=== PATIENT | female | born 1955 | race Hispanic/Latino ===

== ENCOUNTER 2019-03-06 09:47 | Observation (INO) | payer OTHER ==
[~2019-03-06] VITALS: Ht 157.5 cm; Wt 69.4 kg
[2019-03-06] VITALS (7 sets, daily range): BP systolic 106–155; BP diastolic 56–71
--- OUTSIDE RECORDS SUMMARY | 2019-03-06 09:52 | XMS REPORT | Continuity of Care Document ---
Author Author [employer] Address Unknown Phone Unavailable Care Team Providers Care Department Assistant Name Role Phone [employer] Information [employer] Unavailable Unavailable Problems Problem Status Onset Date Classification Date Reported Comments Source CHEST PAINS/ SOB Active 01/15/2018 [facility] ACUTE CHEST PAIN Active 01/15/2018 [facility] Discharge Diagnosis: Constipation 08/22/2016 08/25/2016 [facility] Discharge Diagnosis: Epigastric pain 08/22/2016 08/25/2016 [facility] ABD PAIN Active 08/22/2016 [facility] 726.73 Active 10/22/2012 [facility] UNK Active 10/22/2012 [facility] FALL, KNEE INJURY Active 09/08/2012 [facility] Acid reflux Active Problem 11/05/2012 [facility] Plantar fasciitis1 Active Problem 11/05/2012 1left foot [facility] Acid reflux Active Problem 01/18/2018 [facility] HTN (Confirmed) Resolved Problem 01/18/2018 [facility] Plantar fasciitis1 Active Problem 01/18/2018 left foot [facility] Medications Medication Details Route Status Patient Instructions Ordering Provider Order Date Source lisinopril 20 mg oral tablet 20 mg=1 tab, PO, Daily, 0 Refill(s) Active 01/15/2018 [facility] Acetaminophen 325 MG / Hydrocodone Bitartrate 10 MG Oral Tablet [[place]erson 10/325] 1 tab, Route: PO, Drug Form: TAB, Dosing Weight 86.364, kg, ONCE, STAT, Start date: 01/15/18 6:20:00 CDT, Stop date: 01/15/18 6:20:00 CDT Inactive 01/15/2018 [facility] Aspirin 324 mg, Route: PO, ONCE, Dosing Weight 86.364, kg, Priority: STAT, Start date: 01/15/18 5:58:00 CDT, Stop date: 01/15/18 5:58:00 CDT Inactive 01/15/2018 [facility] Saline Flush 0.9% 10 mL, Route: IVP, Drug Form: INJ, Dosing Weight 86.364, kg, PRN, PRN Line Flush, Start date: 01/15/18 5:58:00 CDT, Duration: 30 day, Stop date: 02/14/18 5:57:00 CDTNotes: (Same as: BD Posiflush) Inactive 01/15/2018 [facility] Docusate Sodium 50 MG Oral Capsule [Colace] 50 mg=1 cap, PO, BID, PRN Constipation, # 60 cap, 0 Refill(s) Active 08/23/2016 [facility] Esomeprazole 20 MG Enteric Coated Capsule [Nexium] 20 mg=1 cap, PO, Daily, # 30 cap, 1 Refill(s) Active 08/23/2016 [facility] Sodium Chloride 0.154 MEQ/ML Injectable Solution 1,000 mL, 1,000 ml/hr, Infuse Over: 1 hr, Route: IV, 1,000, Drug form: INJ, ONCE, Priority: STAT, Dosing Weight 84.091 kg, Start date: 08/22/16 18:58:00 [employer], Duration: 1 doses or times, Stop date: 08/22/16 18:58:00 [employer] Inactive 08/23/2016 [facility] Zofran 4 mg, 2 mL, Route: IVP, Drug form: INJ, ONCE, Dosing Weight 84.091, kg, Priority: STAT, Start date: 08/22/16 18:58:00 [employer], Stop date: 08/22/16 18:58:00 CSTNotes: (Same as: Zofran) MEDICATION WASTE Product Size: 4 mg Product Wasted: ___ mg Inactive 08/23/2016 [facility] Morphine 4 mg, 1 mL, Route: IVP, Drug form: SOLN, ONCE, Dosing Weight 84.091, kg, Priority: STAT, Start date: 08/22/16 18:58:00 [employer], Stop date: 08/22/16 18:58:00 CSTNotes: (Same as:MORPhine Sulfate) Inactive 08/23/2016 [facility] ondansetron 4 mg, Route: IVP, ONCE, Dosing Weight 88.636, kg, PRN Nausea & Vomiting, Start date: 11/03/12 11:03:00 IVP No Longer Active [facility] 11/03/2012 [facility] acetaminophen-hydrocodone 325 mg-5 mg oral tablet 2 tab, Route: PO, Dosing Weight 88.636, kg, Q4H, PRN Pain Score 4-6, Start date: 11/03/12 11:03:00, Duration: 30 day, Stop date: 12/03/12 11:02:00 PO No Longer Active Repinecz 11/03/2012 [facility] fentanyl 25 microgram, Route: IVP, Q5Min, Dosing Weight 88.636, kg, PRN Pain Score 4-6, Start date: 11/03/12 11:03:00, Duration: 4 doses or times, Stop date: Limited # of times IVP No Longer Active Repinecz 11/03/2012 [facility] hydromorphone 0.5 mg, Route: IVP, Q5Min, Dosing Weight 88.636, kg, PRN Pain Score 4-6, Start date: 11/03/12 11:03:00, Duration: 5 doses or times, Stop date: Limited # of times IVP No Longer Active Repinecz 11/03/2012 [facility] naloxone 0.04 mg, Route: IVP, Q2MIN, Dosing Weight 88.636, kg, PRN Narcotic Reversal, Start date: 11/03/12 11:03:00, Duration: 8 doses or times, Stop date: Limited # of times IVP No Longer Active Repinecz 11/03/2012 [facility] ketorolac 30 mg, Route: IVP, ONCE, Dosing Weight 88.636, kg, PRN Breakthrough Pain, Start date: 11/03/12 11:03:00, Duration: 1 doses or times, Stop date: Limited # of times IVP No Longer Active Repinecz 11/03/2012 [facility] meperidine 12.5 mg, Route: IVP, Q30Min, Dosing Weight 88.636, kg, PRN Other -See Comment, For shivering, Start date: 11/03/12 11:03:00, Duration: 2 doses or times, Stop date: Limited # of times IVP No Longer Active Repinecz 11/03/2012 [facility] flumazenil 0.2 mg, Route: IVP, PRN, Dosing Weight 88.636, kg, PRN Benzodiazepine Reversal, Initial dose, Start date: 11/03/12 11:03:00, Duration: 30 day, Stop date: 12/03/12 11:02:00 [facility] Lactated Ringers Injection IV 1000 mL 1,000 mL, Rate: 25 ml/hr, Infuse over: 40 hr, Route: IV, Dosing Weight 88.636 kg, Total Volume: 1,000, Start date: 11/03/12 7:36:00, Duration: 30 day, Stop date: 12/03/12 7:35:00 IV No Longer Active Repinecz 11/03/2012 [facility] cefazolin 2 gm, 100 mL, Route: IVPB, Drug form: INJ, ONCALL, Dosing Weight 89.091, kg, Start date: 10/28/12 17:00:00, Duration: 1 doses or times IVPB No Longer Active Repinecz 10/28/2012 [facility] pantoprazole 20 mg oral enteric coated tablet 40 mg, 2 tab, PO, Daily, 60 tab, Substitution Allowed, ECTAB PO Active 10/28/2012 [facility] [place] 5/325 oral tablet 1 tab, PO, Q6H, PRN, 16 tab, for pain, Substitution Allowed, Maintenance, TAB PO Active [facility] 09/09/2012 [facility] naproxen 375 mg oral enteric coated tablet 375 mg, 1 tab, PO, BID, 8 tab, Substitution Allowed, ECTAB PO Active [facility] 09/09/2012 [facility] acetaminophen-hydrocodone 325 mg-5 mg oral tablet 1 tab, Route: PO, Dosing Weight 89.091, kg, ONCE, STAT, Start date: 09/08/12 19:24:00, Stop date: 09/08/12 19:24:00 PO No Longer Active [facility] 09/09/2012 [facility] Allergies, Adverse Reactions, Alerts No Known Medication Allergies Immunizations No Data Provided for This Section Results Order Name Results Value Reference Range Date Interpretation Comments Source CARDIAC ENZYMES CK MB Index <1.6 0.0 - 2.5 01/15/2018 [facility] CARDIAC ENZYMES Total CK 62 12 - 191 01/15/2018 [facility] CARDIAC ENZYMES Troponin-I <0.02 0.00 - 0.40 01/15/2018 [facility] CARDIAC ENZYMES CK MB <1.0 0.5 - 3.6 01/15/2018 [facility] CARDIAC ENZYMES CK MB Index <1.4 0.0 - 2.5 01/15/2018 [facility] CARDIAC ENZYMES Troponin-I <0.02 0.00 - 0.40 01/15/2018 [facility] CARDIAC ENZYMES Total CK 71 12 - 191 01/15/2018 [facility] CARDIAC ENZYMES CK MB <1.0 0.5 - 3.6 01/15/2018 [facility] URINE AND STOOL UA Leuk Est Negative (01/15/18 6:33 AM) Negative 01/15/2018 [facility] URINE AND STOOL UA Sq Epi Occasional /LPF Few /LPF 01/15/2018 [facility] URINE AND STOOL UA Urobilinogen 0.2 0.1 - 1.0 01/15/2018 [facility] URINE AND STOOL UA Bili Negative *NA* (01/15/18 6:33 AM) Negative 01/15/2018 [facility] URINE AND STOOL UA Nitrite Negative (01/15/18 6:33 AM) Negative 01/15/2018 [facility] URINE AND STOOL UA Blood Negative (01/15/18 6:33 AM) Negative 01/15/2018 [facility] URINE AND STOOL UA WBC 0-2 /HPF 0 - 5 01/15/2018 [facility] URINE AND STOOL UA Mucus None Seen (01/15/18 6:33 AM) None Seen 01/15/2018 [facility] URINE AND STOOL UA Bacteria Occasional /HPF None Seen /HPF 01/15/2018 [facility] URINE AND STOOL UA RBC None Seen (01/15/18 6:33 AM) 0 - 2 01/15/2018 [facility] URINE AND STOOL UA Color Other *ABN* (01/15/18 6:33 AM) Yellow 01/15/2018 [facility] URINE AND STOOL UA Spec Grav <=1.005 *NA* (01/15/18 6:33 AM) <=1.030 01/15/2018 [facility] URINE AND STOOL UA Turbidity Slight Cloudy (01/15/18 6:33 AM) Clear 01/15/2018 [facility] URINE AND STOOL UA Glucose Negative (01/15/18 6:33 AM) Negative 01/15/2018 [facility] URINE AND STOOL UA pH 6.5 5.0 - 8.0 01/15/2018 [facility] URINE AND STOOL UA Ketones Negative *NA* (01/15/18 6:33 AM) Negative 01/15/2018 [facility] URINE AND STOOL UA Protein Negative (01/15/18 6:33 AM) Negative 01/15/2018 [facility] CARDIAC ENZYMES CK MB Index <1.4 0.0 - 2.5 01/15/2018 [facility] CARDIAC ENZYMES Total CK 74 12 - 191 01/15/2018 [facility] CARDIAC ENZYMES Troponin-I <0.02 0.00 - 0.40 01/15/2018 [facility] CARDIAC ENZYMES CK MB <1.0 0.5 - 3.6 01/15/2018 [facility] CARDIAC ENZYMES BNP 22 <=100 pg/mL 01/15/2018 [facility] CHEM PANEL Lipase Lvl 96 73 - 393 01/15/2018 [facility] CHEM PANEL eGFR 93 01/15/2018 Result Comment: The eGFR is calculated using the CKD-EPI formula. In most young, healthy individuals the eGFR will be >90 mL/min/1.73m2. The eGFR declines with age. An eGFR of 60-89 may be normal in some populations, particularly the elderly, for whom the CKD-EPI formula has not been extensively validated. Use of the eGFR is not recommended in the following populations:

Individuals with unstable creatinine concentrations, including patients and those with serious co-morbid conditions.

Patients with extremes in muscle mass or diet.

The data above are obtained from the National Kidney Disease Education Program (NKDEP) which additionally recommends that when the eGFR is used in patients with extremes of body mass index for purposes of drug dosing, the eGFR should be multiplied by the estimated BMI. [facility] CHEM PANEL A/G Ratio 1.0 0.7 - 1.6 01/15/2018 [facility] CHEM PANEL AGAP 11.5 10.0 - 20.0 01/15/2018 [facility] CHEM PANEL Alk Phos 98 39 - 136 01/15/2018 [facility] CHEM PANEL B/C Ratio 24 6 - 25 01/15/2018 [facility] CHEM PANEL Globulin 3.5 2.7 - 4.2 01/15/2018 [facility] CHEM PANEL Bili Total 0.4 0.2 - 1.3 01/15/2018 [facility] CHEM PANEL Albumin Lvl 3.6 3.5 - 5.0 01/15/2018 [facility] CHEM PANEL Calcium Lvl 9.1 8.5 - 10.5 01/15/2018 [facility] CHEM PANEL Total Protein 7.1 6.4 - 8.4 01/15/2018 [facility] CHEM PANEL ALT 23 0 - 65 01/15/2018 [facility] CHEM PANEL AST 14 0 - 37 01/15/2018 [facility] CHEM PANEL CO2 30 24 - 32 01/15/2018 [facility] CHEM PANEL Potassium Lvl 4.5 3.5 - 5.1 01/15/2018 [facility] CHEM PANEL Creatinine Lvl 0.68 0.50 - 1.40 01/15/2018 [facility] CHEM PANEL Sodium Lvl 144 135 - 145 01/15/2018 [facility] CHEM PANEL Chloride Lvl 107 95 - 109 01/15/2018 [facility] CHEM PANEL BUN 16 7 - 22 01/15/2018 [facility] CHEM PANEL Glucose Lvl 103 70 - 99 01/15/2018 [facility] HEMATOLOGY Monocytes 7.4 2.0 - 12.0 01/15/2018 [facility] HEMATOLOGY Lymphocytes 29.1 20.0 - 40.0 01/15/2018 [facility] HEMATOLOGY Basophils 0.6 0.0 - 1.0 01/15/2018 [facility] HEMATOLOGY Segs-Bands # 4.5 1.5 - 8.1 01/15/2018 [facility] HEMATOLOGY Eosinophils # 0.2 0.0 - 0.5 01/15/2018 [facility] HEMATOLOGY Lymphocytes # 2.1 1.0 - 5.5 01/15/2018 [facility] HEMATOLOGY Monocytes # 0.5 0.0 - 0.8 01/15/2018 [facility] HEMATOLOGY Eosinophils 2.4 0.0 - 4.0 01/15/2018 [facility] HEMATOLOGY Segs 60.5 45.0 - 75.0 01/15/2018 [facility] HEMATOLOGY RDW 13.9 11.5 - 14.5 01/15/2018 [facility] HEMATOLOGY Platelet 245 133 - 450 01/15/2018 [facility] HEMATOLOGY MCV 96.3 80.0 - 98.0 01/15/2018 [facility] HEMATOLOGY MPV 8.1 7.4 - 10.4 01/15/2018 [facility] HEMATOLOGY MCHC 34.3 32.0 - 36.0 01/15/2018 [facility] HEMATOLOGY MCH 33.0 27.0 - 31.0 01/15/2018 [facility] HEMATOLOGY WBC 7.4 3.7 - 10.4 01/15/2018 [facility] HEMATOLOGY Hgb 13.2 12.0 - 16.0 01/15/2018 [facility] HEMATOLOGY RBC 4.00 4.20 - 5.40 01/15/2018 [facility] HEMATOLOGY Hct 38.5 36.0 - 48.0 01/15/2018 [facility] HEMATOLOGY PT 13.6 12.0 - 14.7 01/15/2018 [facility] HEMATOLOGY INR 1.04 0.85 - 1.17 01/15/2018 [facility] HEMATOLOGY PTT 26.2 22.9 - 35.8 01/15/2018 [facility] URINE AND STOOL UA pH 6.0 5.0 - 8.0 08/23/2016 [facility] URINE AND STOOL UA Turbidity Slight *ABN* (08/22/16 7:33 PM) Clear 08/23/2016 [facility] URINE AND STOOL UA Spec Grav 1.017 <=1.030 08/23/2016 [facility] URINE AND STOOL UA Protein 100 mg/dL Negative mg/dL 08/23/2016 [facility] URINE AND STOOL UA Sq Epi Many /LPF Few /LPF 08/23/2016 [facility] URINE AND STOOL UA WBC <1 0 - 5 08/23/2016 [facility] URINE AND STOOL UA Bacteria Occasional /HPF None Seen /HPF 08/23/2016 [facility] URINE AND STOOL UA Mucus Few /LPF None Seen /LPF 08/23/2016 [facility] URINE AND STOOL UA Bili Negative *NA* (08/22/16 7:33 PM) Negative 08/23/2016 [facility] URINE AND STOOL UA Blood Negative (08/22/16 7:33 PM) Negative 08/23/2016 [facility] URINE AND STOOL UA Nitrite Negative (08/22/16 7:33 PM) Negative 08/23/2016 [facility] URINE AND STOOL UA Leuk Est Negative (08/22/16 7:33 PM) Negative 08/23/2016 [facility] URINE AND STOOL UA Glucose Negative mg/dL Negative mg/dL 08/23/2016 [facility] URINE AND STOOL UA Ketones Negative mg/dL Negative mg/dL 08/23/2016 [facility] URINE AND STOOL UA Color Ltyellow 08/23/2016 [facility] URINE AND STOOL UA Urobilinogen <=1.0 mg/dL 0.1 - 1.0 08/23/2016 [facility] CARDIAC ENZYMES Troponin-I <0.02 0.00 - 0.40 08/23/2016 [facility] CHEM PANEL Lipase Lvl 76 73 - 393 08/23/2016 [facility] CHEM PANEL Globulin 4.5 2.7 - 4.2 08/23/2016 [facility] CHEM PANEL A/G Ratio 0.9 0.7 - 1.6 08/23/2016 [facility] CHEM PANEL B/C Ratio 27 6 - 25 08/23/2016 [facility] CHEM PANEL AGAP 13.8 10.0 - 20.0 08/23/2016 [facility] CHEM PANEL eGFR 84 08/23/2016 Result Comment: The eGFR is calculated using the CKD-EPI formula. In most young, healthy individuals the eGFR will be >90 mL/min/1.73m2. The eGFR declines with age. An eGFR of 60-89 may be normal in some populations, particularly the elderly, for whom the CKD-EPI formula has not been extensively validated. Use of the eGFR is not recommended in the following populations:

Individuals with unstable creatinine concentrations, including patients and those with serious co-morbid conditions.

Patients with extremes in muscle mass or diet.

The data above are obtained from the National Kidney Disease Education Program (NKDEP) which additionally recommends that when the eGFR is used in patients with extremes of body mass index for purposes of drug dosing, the eGFR should be multiplied by the estimated BMI. [facility] CHEM PANEL Glucose Lvl 139 70 - 99 08/23/2016 [facility] CHEM PANEL BUN 21 7 - 22 08/23/2016 [facility] CHEM PANEL Bili Total 0.3 0.2 - 1.3 08/23/2016 [facility] CHEM PANEL Alk Phos 113 39 - 136 08/23/2016 [facility] CHEM PANEL ALT 34 0 - 65 08/23/2016 [facility] CHEM PANEL AST 20 0 - 37 08/23/2016 [facility] CHEM PANEL Total Protein 8.6 6.4 - 8.4 08/23/2016 [facility] CHEM PANEL Albumin Lvl 4.1 3.5 - 5.0 08/23/2016 [facility] CHEM PANEL CO2 27 24 - 32 08/23/2016 [facility] CHEM PANEL Calcium Lvl 9.1 8.5 - 10.5 08/23/2016 [facility] CHEM PANEL Potassium Lvl 3.8 3.5 - 5.1 08/23/2016 [facility] CHEM PANEL Chloride Lvl 103 95 - 109 08/23/2016 [facility] CHEM PANEL Creatinine Lvl 0.77 0.50 - 1.40 08/23/2016 [facility] CHEM PANEL Sodium Lvl 140 135 - 145 08/23/2016 [facility] HEMATOLOGY Plt Morph Normal (08/22/16 7:01 PM) 08/23/2016 [facility] HEMATOLOGY Metamyelocytes 2.0 0.0 - 1.0 08/23/2016 [facility] HEMATOLOGY Atypical Lymphs 0.0 <=0.0 % 08/23/2016 [facility] HEMATOLOGY RBC Morph Normal (08/22/16 7:01 PM) 08/23/2016 [facility] HEMATOLOGY Segs-Bands # 8.1 1.5 - 8.1 08/23/2016 [facility] HEMATOLOGY Basophils # 0.1 0.0 - 0.2 08/23/2016 [facility] HEMATOLOGY Monocytes # 0.4 0.0 - 0.8 08/23/2016 [facility] HEMATOLOGY Segs 68.0 45.0 - 75.0 08/23/2016 [facility] HEMATOLOGY Lymphocytes # 3.1 1.0 - 5.5 08/23/2016 [facility] HEMATOLOGY Lymphocytes 26.0 20.0 - 40.0 08/23/2016 [facility] HEMATOLOGY Basophils 1.0 0.0 - 1.0 08/23/2016 [facility] HEMATOLOGY Bands 0.0 0.0 - 11.0 08/23/2016 [facility] HEMATOLOGY Monocytes 3.0 2.0 - 12.0 08/23/2016 [facility] HEMATOLOGY MCV 94.4 80.0 - 98.0 08/23/2016 [facility] HEMATOLOGY RDW 14.1 11.5 - 14.5 08/23/2016 [facility] HEMATOLOGY Hct 42.3 36.0 - 48.0 08/23/2016 [facility] HEMATOLOGY Hgb 14.2 12.0 - 16.0 08/23/2016 [facility] HEMATOLOGY Platelet 274 133 - 450 08/23/2016 [facility] HEMATOLOGY MCHC 33.6 32.0 - 36.0 08/23/2016 [facility] HEMATOLOGY MPV 8.5 7.4 - 10.4 08/23/2016 [facility] HEMATOLOGY MCH 31.7 27.0 - 31.0 08/23/2016 [facility] HEMATOLOGY RBC 4.48 4.20 - 5.40 08/23/2016 [facility] HEMATOLOGY WBC 11.9 3.7 - 10.4 08/23/2016 [facility] URINALYSIS UA Sq Epi Few /LPF *NA* (10/28/2012 16:31:00) Few 10/28/2012 NA [facility] URINALYSIS UA RBC 1 0 - 2 10/28/2012 Normal [facility] URINALYSIS UA Leuk Est Negative (10/28/2012 16:31:00) Negative 10/28/2012 Normal [facility] URINALYSIS UA Nitrite Negative (10/28/2012 16:31:00) Negative 10/28/2012 Normal [facility] URINALYSIS UA Ketones Negative mg/dL *NA* (10/28/2012 16:31:00) Negative 10/28/2012 [facility] URINALYSIS UA WBC 1 0 - 5 10/28/2012 Normal [facility] URINALYSIS UA Glucose Negative mg/dL *NA* (10/28/2012 16:31:00) Negative 10/28/2012 NA [facility] URINALYSIS UA Blood Negative (10/28/2012 16:31:00) Negative 10/28/2012 Normal [facility] URINALYSIS UA Bili Negative *NA* (10/28/2012 16:31:00) Negative 10/28/2012 [facility] URINALYSIS UA Protein Negative mg/dL (10/28/2012 16:31:00) Negative 10/28/2012 Normal [facility] URINALYSIS UA Urobilinogen 0.1 - 1.0 10/28/2012 NA [facility] URINALYSIS UA Mucus Few /LPF *NA* (10/28/2012 16:31:00) None Seen 10/28/2012 [facility] URINALYSIS UA Spec Grav 1.024 <=1.030 10/28/2012 Normal [facility] URINALYSIS UA Turbidity Clear (10/28/2012 16:31:00) Clear 10/28/2012 Normal [facility] URINALYSIS UA Color Yellow *NA* (10/28/2012 16:31:00) Yellow 10/28/2012 [facility] URINALYSIS UA pH 5.0 5.0 - 8.0 10/28/2012 Normal [facility] Pathology Reports No Data Provided for This Section Diagnostic Reports Report Value Date Source Chest 1view DX Chest, single view dated 01/15/2018. HISTORY: Chest pain. Shortness of breath. Comparison is made to a prior study dated 08/22/2016. The heart is normal in size. The cardiomediastinal shadow is stable. The lungs appear clear. The pulmonary vasculature is normal in caliber. No acute pleural space abnormalities are identified. IMPRESSION: 1. No radiographic evidence of acute cardiopulmonary disease. SL: 131 01/15/2018 [facility] Abdomen/Pelvis w IV contrast CT Patient Name: KRISTI NUNO : 1955; Age: 60 years Female MR: [id number] Study: Abdomen/Pelvis w IV contrast CT 08/22/2016 6:59 PM [employer] Clinical Indication: Abdominal pain, acute, Stated difuse abd pain x 1 hr. Denies nausea and vomiting.. 100ml omnipaque, ct [id number] COMPARISON: Ultrasound 08/22/2016. TECHNIQUE: Helical imaging was performed diaphragm through the symphysis with IV multiplanar reformations obtained after the administration of IV contrast. FINDINGS: LOWER CHEST: Mild cardiomegaly. Bibasilar atelectasis. ABDOMEN: No free air. Small hiatal hernia. LIVER: Normal. BILIARY TREE: Normal. GALLBLADDER: Normal. PANCREAS: Normal. SPLEEN: Normal. ADRENALS: Normal. KIDNEYS: No hydronephrosis. PELVIS: No pelvic mass. The urinary bladder is normal. BOWEL: Normal appendix. Right colonic marked degree of retained feces with fecalization of the distal small bowel. PERITONEUM: No free intraperitoneal fluid. RETROPERITONEUM: Mild atheromatous aortic calcification. There is no pathologic lymphadenopathy. 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 L4- S1 severe spondylosis. Lower lumbar laminectomy. IMPRESSION: 1. Right colonic constipation with fecalization of distal small bowel. 2. Normal appendix. 3. Cardiomegaly. 4. 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 5. Small hiatal hernia. 6. Lower lumbar spondylosis. SL: [id number] 08/22/2016 [facility] Abdomen RUQ US Patient Name: KRISTI NUNO : 1955; Age: 60 years Female MR: [id number] Study: Abdomen RUQ US 08/22/2016 6:57 PM [employer] Clinical Indication: Abdominal pain, acute. epigastric pain for one hour. COMPARISON: None TECHNIQUE: Grayscale and limited color sonographic evaluation of the right upper quadrant of the abdomen and gallbladder region was performed with standard technique. FINDINGS: LIVER: The visualized liver shows normal contour, size, and morphology. There is increased parenchymal echotexture. BILE DUCTS: The intrahepatic and extrahepatic bile ducts are not dilated. The common bile duct measures 3.8 mm. The distal common bile duct is not well seen. GALLBLADDER: No definite gallstones. Slight gallbladder wall thickening up to 3.5 mm. PANCREAS: Slight pancreatic body thickening with overall limited evaluation secondary to bowel gas. KIDNEY: The right kidney measures 11.2 x 6.0 x 5.6 cm. The renal cortical thickness measures 1.0 cm. There is normal renal contour and morphology, with normal parenchymal echotexture. There is no hydronephrosis. ASCITES: There is no right upper quadrant abdominal ascites. IMPRESSION: 1. No definite gallstones. Slight gallbladder wall thickening. This could be secondary to underdistention. If there is concern for acalculous cholecystitis, a HIDA scan is then recommended. 2. Pancreatic wall thickening, correlation for pancreatitis is recommended. 3. Hepatocellular disease most likely due to fatty infiltration. SL: [id number] 08/22/2016 [facility] Chest 1view DX EXAM: XR CHEST 1 VIEW DATE: 08/22/2016 6:56 PM [employer] INDICATION: Shortness of Breath. COMPARISON: None Available. TECHNIQUE: A single AP view of the chest was obtained. FINDINGS: No focal consolidation or pneumothorax is identified. The cardiomediastinal silhouette is within normal limits. The costophrenic recesses are sharp and without effusion. No acute osseous abnormality is identified. IMPRESSION: No acute cardiopulmonary abnormality. SL: [id number] 08/22/2016 [facility] Consultation Notes No Data Provided for This Section Discharge Summaries No Data Provided for This Section History and Physicals No Data Provided for This Section Vital Signs Vital Sign Value Date Comments Source Respitory Rate 17 01/15/2018 [facility] Heart Rate 63 01/15/2018 [facility] Systolic (mm Hg) 114 01/15/2018 [facility] Diastolic (mm Hg) 60 01/15/2018 [facility] Temperature Oral (F) 98.0 F 01/15/2018 [facility] BMI Calculated 35.37 01/15/2018 [facility] Height 157.48 cm 01/15/2018 [facility] Weight 87.727 01/15/2018 [facility] Systolic (mm Hg) 141 01/15/2018 [facility] Diastolic (mm Hg) 70 01/15/2018 [facility] Heart Rate 63 01/15/2018 [facility] Temperature Oral (F) 97.7 F 01/15/2018 [facility] Respitory Rate 18 01/15/2018 [facility] Systolic (mm Hg) 132 01/15/2018 [facility] Diastolic (mm Hg) 83 01/15/2018 [facility] Respitory Rate 14 01/15/2018 [facility] Heart Rate 66 01/15/2018 [facility] Weight 86.364 01/15/2018 [facility] BMI Calculated 34.82 01/15/2018 [facility] Temperature Oral (F) 98.4 F 01/15/2018 [facility] Height 157.48 cm 01/15/2018 [facility] Respitory Rate 20 08/23/2016 [facility] Systolic (mm Hg) 161 08/23/2016 [facility] Diastolic (mm Hg) 75 08/23/2016 [facility] Temperature Oral (F) 98.2 F 08/23/2016 [facility] Systolic (mm Hg) 180 08/23/2016 [facility] Diastolic (mm Hg) 83 08/23/2016 [facility] Respitory Rate 19 08/23/2016 [facility] Systolic (mm Hg) 201 08/23/2016 [facility] Diastolic (mm Hg) 97 08/23/2016 [facility] Respitory Rate 17 08/23/2016 [facility] Heart Rate 93 08/23/2016 [facility] Heart Rate 93 08/23/2016 [facility] Temperature Oral (F) 97.7 F 08/23/2016 [facility] Height 157.48 cm 08/23/2016 [facility] Weight 84.091 08/23/2016 [facility] BMI Calculated 33.91 08/23/2016 [facility] Diastolic (mm Hg) 71 11/03/2012 [facility] Systolic (mm Hg) 132 11/03/2012 [facility] Diastolic (mm Hg) 64 11/03/2012 [facility] Systolic (mm Hg) 131 11/03/2012 [facility] Diastolic (mm Hg) 68 11/03/2012 [facility] Systolic (mm Hg) 132 11/03/2012 [facility] Respitory Rate 10 11/03/2012 [facility] Respitory Rate 12 11/03/2012 [facility] Respitory Rate 14 11/03/2012 [facility] Heart Rate 77 11/03/2012 [facility] Heart Rate 74 10/28/2012 [facility] Temperature Oral (F) 97.8 F 10/28/2012 [facility] Weight 88.636 10/28/2012 [facility] Height 157.48 cm 10/28/2012 [facility] Height 157.48 cm 09/08/2012 [facility] Weight 89.091 09/08/2012 [facility] Encounters Location Location Details Encounter Type Encounter Number Reason For Visit Attending Provider ADM Date DC Date Status Source [facility] Emergency [id number] AKILAH PATRICIO 09/08/2012 09/08/2012 Discharged [facility] DS [id number] NIRALI GORDON 11/03/2012 11/03/2012 Discharged [facility] Emergency [id number] Harleen Al 08/23/2016 08/23/2016 [facility] Observation [id number] Celso Mantilla 01/15/2018 01/15/2018 [facility] Procedures Procedure Code Date Perfomer Comments Source Arthroscopic knee operation [id number] [facility] Operation [id number] [facility] Arthroscopic knee operation [id number] [facility] Operation [id number] [facility] Assessment and Plan Assessment and Plan Date Source Extracted from:Title: Clinical Document Author: Celso Mantilla MD Date: 01/15/18 Cardiology Note Celso Mantilla MD, PA THIS IS A COMBINED H&P AND DISCHARGE SUMMARY SUBJECTIVE: CC: chest pain History of Present Illness The patient presents with chest pain. The onset was 23:30 last night . The course/duration of symptoms is constant. Location: central. Radiating pain: left arm. The character of symptoms is sharp. The degree at onset was minimal. The degree at maximum was moderate. The degree at present is minimal. Associated symptoms: denies shortness of breath, denies nausea, denies vomiting, denies diaphoresis and denies anxiety. Review of Systems Constitutional symptoms: Negative except as documented in HPI, no fever, no chills, no weakness, no fatigue, no decreased activity. Skin symptoms: Negative except as documented in HPI, no jaundice, no rash, no abrasions, no nguyen, no petechiae, no lesion. Eye symptoms: Negative except as documented in HPI, no pain, no discharge, no diplopia, no blurred vision, no blindness. ENMT symptoms: Negative except as documented in HPI, no ear pain, no sore throat, no nasal congestion, no sinus pain. Respiratory symptoms: Negative except as documented in HPI, no shortness of breath, no orthopnea, no cough, no hemoptysis, no sputum production. Cardiovascular symptoms: Chest pain, no palpitations, no tachycardia, no syncope, no peripheral edema. Gastrointestinal symptoms: Negative except as documented in HPI, no nausea, no vomiting, no diarrhea, no constipation, no rectal bleeding, no rectal pain. Genitourinary symptoms: No dysuria, no hematuria. Musculoskeletal symptoms: Negative except as documented in HPI, no back pain, no Muscle pain, no Joint pain, no Claudication. Neurologic symptoms: Negative except as documented in HPI, no headache, no dizziness, no numbness. Psychiatric symptoms: Negative except as documented in HPI, no anxiety, no sleeping problems. Endocrine symptoms: Negative except as documented in HPI, no polyuria, no polydipsia. Hematologic/Lymphatic symptoms: Negative except as documented in HPI, bleeding tendency negative, bruising tendency negative, no petechiae, no swollen nodes. Allergy/immunologic symptoms: Negative except as documented in HPI, no seasonal allergies, no recurrent infections. Additional review of systems information: All other systems reviewed and otherwise negative. Health Status Allergies: No known allergies. Medications: (Selected) Prescriptions Prescribed Colace 50 mg oral capsule: 50 mg, 1 cap, PO, BID, PRN: Constipation, 60 cap, 0 Refill(s) NexIUM 20 mg oral delayed release capsule: 20 mg, 1 cap, PO, Daily, 30 cap, 1 Refill(s) Documented Medications Documented pantoprazole 20 mg oral enteric coated tablet: 40 mg, 2 tab, PO, Daily, 60 tab. Past Medical/ Family/ Social History Medical history: HTN, reflux. Surgical history: arthroscopic knee operation . Family history: Denies family hx of HTN. Social history: Pt denies tobacco use, alcohol use, or drugs. . Vitals and Temp: Vitals Tmp(F) Pulse BP RR SpO2 FIO2 01/15 15:44 98.0 63 114/60 17 94 --- 01/15 11:15 97.7 63 141/70 18 99 --- 01/15 10:27 ---- 64 132/83 14 98 --- 01/15 07:00 ---- 61 141/74 15 99 --- 01/15 06:26 ---- --- 155/83 -- --- --- 24 Hr Tmax: 98.4F (36.89c) at 01/15 05:03 Vital Signs are the last 5 in the past 48 hours. Labs (Last four charted values) WBC 7.4 (JANUARY 15) Hgb 13.2 (JANUARY 15) Hct 38.5 (JANUARY 15) Plt 245 (JANUARY 15) Na 144 (JANUARY 15) K 4.5 (JANUARY 15) CO2 30 (JANUARY 15) Cl 107 (JANUARY 15) Cr 0.68 (JANUARY 15) BUN 16 (JANUARY 15) Glucose Random H 103 (JANUARY 15) Ca 9.1 (JANUARY 15) PT 13.6 (JANUARY 15) INR 1.04 (JANUARY 15) PTT 26.2 (JANUARY 15) Troponin <0.02 (JANUARY 15) <0.02 (JANUARY 15) <0.02 (JANUARY 15) CK MB <1.0 (JANUARY 15) <1.0 (JANUARY 15) <1.0 (JANUARY 15) Total CK 62 (JANUARY 15) 71 (JANUARY 15) 74 (JANUARY 15) EXAM: Good BP control; NSR; afebrile Head: normocephalic and atraumatic Neck: no carotid bruit; no JVD CV: Regular; -S3; no significant murmurs Lungs: Clear; no wheezing; good air entry Abd: soft and no organomegaly; + bowel sounds Ext: no CCE; good pulses distally Neuro: nonfocal; oriented *3 Psych: appropriate ASSESSMENT: Atypical chest pain- resolved Negative cardiac enzymes Benign ECG PLAN: DC home No new meds Cardiac diet Activity as tolerated F/U in 1-2 weeks 01/15/2018 [facility] Plan of Care No Data Provided for This Section Social History Social History Date Source Social History TypeResponse Smoking Status Never smoker; Exposure to Tobacco Smoke None; Cigarette Smoking Last 365 Days No; Reg Smoking Cessation Counseling No entered on: 01/15/18 01/15/2018 [facility] Family History No Data Provided for This Section Advance Directives No Data Provided for This Section Functional Status No Data Provided for This Section
--- OUTSIDE RECORDS SUMMARY | 2019-03-06 09:53 | XMS REPORT | Summary of Care ---
Author Author [facility] Organization [facility] Address Unknown Phone Unavailable Encounter HQ Walter(LAUREN) [id number] Date(s): 01/15/18 - 01/15/18 [facility] [address] [place] [address]- [phone] Discharge Disposition: Home or Self Care Attending Physician: Celso Mantilla MD Admitting Physician: Celso Mantilla MD Vital Signs 1 2 3 Most recent to oldest [Reference Range]: 157.48 cm (01/15/18 11:49 AM) 157.48 cm (01/15/18 5:03 AM) Height 98.0 DegF (01/15/18 3:44 PM) 97.7 DegF (01/15/18 11:15 AM) 98.4 DegF (01/15/18 5:03 AM) Temperature Oral [96.4-99.1 DegF] 114/60 mmHg (01/15/18 3:44 PM) 141/70 mmHg *HI* (01/15/18 11:15 AM) 132/83 mmHg (01/15/18 10:27 AM) Blood Pressure [90-140/60-90 mmHg] 17 BRMIN (01/15/18 3:44 PM) 18 BRMIN (01/15/18 11:15 AM) 14 BRMIN (01/15/18 10:27 AM) Respiratory Rate [14-20 BRMIN] 63 bpm (01/15/18 3:44 PM) 63 bpm (01/15/18 11:15 AM) 66 bpm (01/15/18 5:03 AM) Peripheral Pulse Rate [60-100 bpm] 87.727 kg (01/15/18 11:49 AM) 86.364 kg (01/15/18 5:03 AM) Weight 35.37 m2 (01/15/18 11:49 AM) 34.82 m2 (01/15/18 5:03 AM) Body Mass Index Problem List Condition Effective Dates Status Health Status Informant Acid Active reflux(Confirmed) HTN Resolved (hypertension)(Confi rmed) Plantar Active fasciitis(Confirmed) 1 1left foot Allergies, Adverse Reactions, Alerts Substance Reaction Severity Status NKDA NKDA Active Medications aspirin 324 mg, Route: PO, ONCE, Dosing Weight 86.364, kg, Priority: STAT, Start date: 0 01/15/18 5:58:00 CDT, Stop date: 01/15/18 5:58:00 CDT Start Date: 01/15/18 Stop Date: 01/15/18 Status: Completed lisinopril 20 mg oral tablet 20 mg=1 tab, PO, Daily, 0 Refill(s) Start Date: 01/15/18 Status: Ordered [place] 10/325 oral tablet 1 tab, Route: PO, Drug Form: TAB, Dosing Weight 86.364, kg, ONCE, STAT, Start da te: 01/15/18 6:20:00 CDT, Stop date: 01/15/18 6:20:00 CDT Start Date: 01/15/18 Stop Date: 01/15/18 Status: Completed Saline Flush 0.9% 10 mL, Route: IVP, Drug Form: INJ, Dosing Weight 86.364, kg, PRN, PRN Line Flush , Start date: 01/15/18 5:58:00 CDT, Duration: 30 day, Stop date: 02/14/18 5:57:0 0 CDT Notes: (Same as: BD Posiflush) Start Date: 01/15/18 Stop Date: 01/15/18 Status: Discontinued Results ELECTROLYTES 1 2 3 Most recent to oldest [Reference Range]: 144 mEq/L (01/15/18 6:06 AM) Sodium Lvl [135-145 mEq/L] 4.5 mEq/L (01/15/18 6:06 AM) Potassium Lvl [3.5-5.1 mEq/L] 107 mEq/L (01/15/18 6:06 AM) Chloride Lvl [95-109 mEq/L] 30 mEq/L (01/15/18 6:06 AM) CO2 [24-32 mEq/L] 11.5 mEq/L (01/15/18 6:06 AM) AGAP [10.0-20.0 mEq/L] CHEM PANEL 1 2 3 Most recent to oldest [Reference Range]: 0.68 mg/dL (01/15/18 6:06 AM) Creatinine Lvl [0.50-1.40 mg/dL] 93 mL/min/1.73m2 1 *NA* (01/15/18 6:06 AM) eGFR 16 mg/dL (01/15/18 6:06 AM) BUN [7-22 mg/dL] 24 (01/15/18 6:06 AM) B/C Ratio [6-25] 103 mg/dL *HI* (01/15/18 6:06 AM) Glucose Lvl [70-99 mg/dL] 7.1 g/dL (01/15/18 6:06 AM) Total Protein [6.4-8.4 g/dL] 3.6 g/dL (01/15/18 6:06 AM) Albumin Lvl [3.5-5.0 g/dL] 3.5 g/dL (01/15/18 6:06 AM) Globulin [2.7-4.2 g/dL] 1.0 (01/15/18 6:06 AM) A/G Ratio [0.7-1.6] 9.1 mg/dL (01/15/18 6:06 AM) Calcium Lvl [8.5-10.5 mg/dL] 23 unit/L (01/15/18 6:06 AM) ALT [0-65 unit/L] 14 unit/L (01/15/18 6:06 AM) AST [0-37 unit/L] 98 unit/L (01/15/18 6:06 AM) Alk Phos [39-136 unit/L] 0.4 mg/dL (01/15/18 6:06 AM) Bili Total [0.2-1.3 mg/dL] 96 unit/L (01/15/18 6:06 AM) Lipase Lvl [73-393 unit/L] 1Result Comment: The eGFR is calculated using the [...] from the National Kid[employer] Education Program ( NKDEP) which additionally recommends that when the eGFR is used in patients with extremes of body mass index for purposes of drug dosing, the eGFR should be mul tiplied by the estimated BMI. CARDIAC ENZYMES 1 2 3 Most recent to oldest [Reference Range]: 62 unit/L (01/15/18 4:20 PM) 71 unit/L (01/15/18 12:07 PM) 74 unit/L (01/15/18 6:06 AM) Total CK [12-191 unit/L] <1.0 ng/mL (01/15/18 4:20 PM) <1.0 ng/mL (01/15/18 12:07 PM) <1.0 ng/mL (01/15/18 6:06 AM) CK MB [0.5-3.6 ng/mL] <1.6 (01/15/18 4:20 PM) <1.4 (01/15/18 12:07 PM) <1.4 (01/15/18 6:06 AM) CK MB Index [0.0-2.5] <0.02 ng/mL (01/15/18 4:20 PM) <0.02 ng/mL (01/15/18 12:07 PM) <0.02 ng/mL (01/15/18 6:06 AM) Troponin-I [0.00-0.40 ng/mL] 22 pg/mL (01/15/18 6:06 AM) BNP [<=100 pg/mL] URINE AND STOOL 1 2 3 Most recent to oldest [Reference Range]: Slight Cloudy (01/15/18 6:33 AM) UA Turbidity [Clear] Other *ABN* (01/15/18 6:33 AM) UA Color [Yellow] 6.5 (01/15/18 6:33 AM) UA pH [5.0-8.0] <=1.005 *NA* (01/15/18 6:33 AM) UA Spec Grav [<=1.030] Negative (01/15/18 6:33 AM) UA Glucose [Negative] Negative (01/15/18 6:33 AM) UA Blood [Negative] Negative *NA* (01/15/18 6:33 AM) UA Ketones [Negative] Negative (01/15/18 6:33 AM) UA Protein [Negative] 0.2 EU/dL (01/15/18 6:33 AM) UA Urobilinogen [0.1-1.0 EU/dL] Negative *NA* (01/15/18 6:33 AM) UA Bili [Negative] Negative (01/15/18 6:33 AM) UA Leuk Est [Negative] Negative (01/15/18:33 AM) UA Nitrite [Negative] 0-2 /HPF (01/15/18 6:33 AM) UA WBC [0-5 /HPF] None Seen (01/15/18 6:33 AM) UA RBC [0-2] Occasional /HPF (01/15/18 6:33 AM) UA Bacteria [None Seen /HPF] Occasional /LPF (01/15/18 6:33 AM) UA Sq Epi [Few /LPF] None Seen (01/15/18 6:33 AM) UA Mucus [None Seen] HEMATOLOGY 1 2 3 Most recent to oldest [Reference Range]: 7.4 K/CMM (01/15/18 6:06 AM) WBC [3.7-10.4 K/CMM] 4.00 M/CMM *LOW* (01/15/18 6:06 AM) RBC [4.20-5.40 M/CMM] 13.2 g/dL (01/15/18 6:06 AM) Hgb [12.0-16.0 g/dL] 38.5 % (01/15/18 6:06 AM) Hct [36.0-48.0 %] 96.3 fL (01/15/18 6:06 AM) MCV [80.0-98.0 fL] 33.0 pg *HI* (01/15/18 6:06 AM) MCH [27.0-31.0 pg] 34.3 g/dL (01/15/18 6:06 AM) MCHC [32.0-36.0 g/dL] 13.9 % (01/15/18 6:06 AM) RDW [11.5-14.5 %] 8.1 fL (01/15/18 6:06 AM) MPV [7.4-10.4 fL] 245 K/CMM (01/15/18 6:06 AM) Platelet [133-450 K/CMM] 60.5 % (01/15/18 6:06 AM) Segs [45.0-75.0 %] 29.1 % (01/15/18 6:06 AM) Lymphocytes [20.0-40.0 %] 7.4 % (01/15/18 6:06 AM) Monocytes [2.0-12.0 %] 2.4 % (01/15/18 6:06 AM) Eosinophils [0.0-4.0 %] 0.6 % (01/15/18 6:06 AM) Basophils [0.0-1.0 %] 4.5 K/CMM (01/15/18 6:06 AM) Segs-Bands # [1.5-8.1 K/CMM] 2.1 K/CMM (01/15/18 6:06 AM) Lymphocytes # [1.0-5.5 K/CMM] 0.5 K/CMM (01/15/18 6:06 AM) Monocytes # [0.0-0.8 K/CMM] 0.2 K/CMM (01/15/18 6:06 AM) Eosinophils # [0.0-0.5 K/CMM] 13.6 seconds (01/15/18 6:06 AM) PT [12.0-14.7 seconds] 1.04 (01/15/18 6:06 AM) INR [0.85-1.17] 26.2 seconds (01/15/18 6:06 AM) PTT [22.9-35.8 seconds] Immunizations No data available for this section Procedures Procedure Date Related Diagnosis Body Site Status Arthroscopic knee operation Completed Operation Completed Social History Social History Type Response Smoking Status Never smoker; Exposure to Tobacco Smoke None; Cigarette Smoking Last 365 Days No; Reg Smoking Cessation Counseling No entered on: 01/15/18 Assessment and Plan Extracted from: Title: Clinical Document Author: Celso Mantilla MD Date: [...] use, or drugs. . Vitals and Temp: VitalsTmp(F)[id number] 01/15 15:[id number]--- 01/15 11:1597.996633/068558--- 01/15 10:27----[id number]--- 01/15 07:00----[id number]--- 01/15 06:26-------155/83-------- 24 Hr Tmax: 98.4F (36.89c) at 01/15 05:03Vital Signs are the last 5 in the past 48 hours. Labs (Last four charted values) WBC 7.4(JANUARY 15) Hgb 13.2(JANUARY 15) Hct 38.5(JANUARY 15) Plt 245(JANUARY 15) Na 144(JANUARY 15) K 4.5(JANUARY 15) CO2 30(JANUARY 15) Cl 107(JANUARY 15) Cr 0.68(JANUARY 15) BUN 16(JANUARY 15) Glucose Random H 103(JANUARY 15) Ca 9.1(JANUARY 15) PT 13.6(JANUARY 15) INR 1.04(JANUARY 15) PTT 26.2(JANUARY 15) Troponin <0.02(JANUARY 15)<0.02(JANUARY 15)<0.02(JANUARY 15) CK MB <1.0(JANUARY 15)<1.0(JANUARY 15)<1.0(JANUARY 15) Total CK 62(JANUARY 15)71(JANUARY 15)74(JANUARY 15) EXAM: Good BP control; NSR; afebrile [...]
--- OUTSIDE RECORDS SUMMARY | 2019-03-06 09:53 | XMS REPORT | CCD ---
Author Author Auto Generated Organization [facility] [place] [place] Address Unknown Phone Unavailable Care Team Providers Care Deicer Finisher Name Role Phone Joss Simental RP Allergies, Adverse Reactions, Alerts Substance Reaction Status NKDA NKDA Active Problem List Condition Effective Dates Status Acid reflux Active Plantar fasciitis1 Active 1left foot Medications Medication Instructions Start Date End Date Status ondansetron 4 mg, Route: IVP, ONCE, Dosing 11/03/2012 11/03/2012 Discontinued Weight 88.636, kg, PRN Nausea & Vomiting, Start date: 11/03/12 11:03:00 acetaminophen-hydroc 2 tab, Route: PO, Dosing Weight 11/03/2012 11/03/2012 Discontinued odone 325 mg-5 mg 88.636, kg, Q4H, PRN Pain Score oral tablet 4-6, Start date: 11/03/12 11:03:00, Duration: 30 day, Stop date: 12/03/12 11:02:00 fentanyl 25 microgram, Route: IVP, Q5Min, 11/03/2012 11/03/2012 Discontinued Dosing Weight 88.636, kg, PRN Pain Score 4-6, Start date: 11/03/12 11:03:00, Duration: 4 doses or times, Stop date: Limited # of times hydromorphone 0.5 mg, Route: IVP, Q5Min, Dosing 11/03/2012 11/03/2012 Discontinued Weight 88.636, kg, PRN Pain Score 4-6, Start date: 11/03/12 11:03:00, Duration: 5 doses or times, Stop date: Limited # of times naloxone 0.04 mg, Route: IVP, Q2MIN, Dosing 11/03/2012 11/03/2012 Discontinued Weight 88.636, kg, PRN Narcotic Reversal, Start date: 11/03/12 11:03:00, Duration: 8 doses or times, Stop date: Limited # of times ketorolac 30 mg, Route: IVP, ONCE, Dosing 11/03/2012 11/03/2012 Discontinued Weight 88.636, kg, PRN Breakthrough Pain, Start date: 11/03/12 11:03:00, Duration: 1 doses or times, Stop date: Limited # of times meperidine 12.5 mg, Route: IVP, Q30Min, Dosing 11/03/2012 11/03/2012 Discontinued Weight 88.636, kg, PRN Other -See Comment, For shivering, Start date: 11/03/12 11:03:00, Duration: 2 doses or times, Stop date: Limited # of times flumazenil 0.2 mg, Route: IVP, PRN, Dosing 11/03/2012 11/03/2012 Discontinued Weight 88.636, kg, PRN Benzodiazepine Reversal, Initial dose, Start date: 11/03/12 11:03:00, Duration: 30 day, Stop date: 12/03/12 11:02:00 pantoprazole 20 mg 40 mg, 2 tab, PO, Daily, 60 tab, 10/28/2012 Ordered oral enteric coated Substitution Allowed, ECTAB tablet Lactated Ringers 1,000 mL, Rate: 25 ml/hr, Infuse 11/03/2012 11/03/2012 Discontinued Injection IV 1000 mL over: 40 hr, Route: IV, Dosing Weight 88.636 kg, Total Volume: 1,000, Start date: 11/03/12 7:36:00, Duration: 30 day, Stop date: 12/03/12 7:35:00 cefazolin 2 gm, 100 mL, Route: IVPB, Drug 10/28/2012 11/03/2012 Completed form: INJ, ONCALL, Dosing Weight 89.091, kg, Start date: 10/28/12 17:00:00, Duration: 1 doses or times Vital Signs Most recent to oldest [Reference Range]: 1 2 3 Height 157.48 cm (10/28/2012 16:30:00) Temperature Oral [96.4-99.1 DegF] 97.8 DegF (10/28/2012 16:51:00) Systolic Blood Pressure [90-140 mmHg] 132 mmHg (11/03/2012 11:45:00) 131 mmHg (11/03/2012 11:30:00) 132 mmHg (11/03/2012 11:15:00) Diastolic Blood Pressure [60-90 mmHg] 71 mmHg (11/03/2012 11:45:00) 64 mmHg (11/03/2012 11:30:00) 68 mmHg (11/03/2012 11:15:00) Respiratory Rate [14-20 BRMIN] 10 BRMIN *LOW* (11/03/2012 10:30:00) 12 BRMIN *LOW* (11/03/2012 10:15:00) 14 BRMIN (11/03/2012 10:00:00) Peripheral Pulse Rate [60-100 bpm] 77 bpm (11/03/2012 07:29:00) 74 bpm (10/28/2012 16:51:00) Weight 88.636 kg (10/28/2012 16:30:00) Results URINALYSIS Most recent to oldest [Reference Range]: 1 UA Turbidity [Clear] Clear (10/28/2012 16:31:00) UA Color [Yellow] Yellow *NA* (10/28/2012 16:31:00) UA pH [5.0-8.0] 5.0 (10/28/2012 16:31:00) UA Spec Grav [<=1.030] 1.024 (10/28/2012 16:31:00) UA Glucose [Negative mg/dL] Negative mg/dL *NA* (10/28/2012 16:31:00) UA Blood [Negative] Negative (10/28/2012 16:31:00) UA Ketones [Negative mg/dL] Negative mg/dL *NA* (10/28/2012 16:31:00) UA Protein [Negative mg/dL] Negative mg/dL (10/28/2012 16:31:00) UA Urobilinogen [0.1-1.0 mg/dL] <=1.0 mg/dL *NA* (10/28/2012 16:31:00) UA Bili [Negative] Negative *NA* (10/28/2012 16:31:00) UA Leuk Est [Negative] Negative (10/28/2012 16:31:00) UA Nitrite [Negative] Negative (10/28/2012 16:31:00) UA WBC [0-5 /HPF] 1 /HPF (10/28/2012 16:31:00) UA RBC [0-2 /HPF] 1 /HPF (10/28/2012 16:31:00) UA Sq Epi [Few /LPF] Few /LPF *NA* (10/28/2012 16:31:00) UA Mucus [None Seen /LPF] Few /LPF *NA* (10/28/2012 16:31:00) Procedures Procedures Date Related Diagnosis Arthroscopic knee operation Operation
--- OUTSIDE RECORDS SUMMARY | 2019-03-06 09:53 | XMS REPORT | Summary of Care ---
Author Author [facility] Organization [facility] Address Unknown Phone Unavailable Encounter IGOR Watson(LAUREN) [phone] Date(s): 08/22/16 - 08/22/16 [facility] [address] [place] [address]- [phone] Discharge Diagnosis: Constipation Discharge Diagnosis: Epigastric pain Discharge Disposition: Home or Self Care Attending Physician: Harleen Al DO Vital Signs 1 2 3 Most recent to oldest [Reference Range]: 157.48 cm (08/22/16 6:37 PM) Height 98.2 DegF (08/22/16 10:58 PM) 97.7 DegF (08/22/16 6:37 PM) Temperature Oral [96.4-99.1 DegF] 161/75 mmHg *HI* (08/22/16 10:58 PM) 180/83 mmHg *HI* (08/22/16 10:03 PM) 201/97 mmHg *HI* (08/22/16 9:13 PM) Blood Pressure [90-140/60-90 mmHg] 20 BRMIN (08/22/16 10:58 PM) 19 BRMIN (08/22/16 10:03 PM) 17 BRMIN (08/22/16 9:13 PM) Respiratory Rate [14-20 BRMIN] 93 bpm (08/22/16 6:50 PM) 93 bpm (08/22/16 6:37 PM) Peripheral Pulse Rate [60-100 bpm] 84.091 kg (08/22/16 6:37 PM) Weight 33.91 m2 (08/22/16 6:37 PM) Body Mass Index Problem List Condition Effective Dates Status Health Status Informant Acid Active reflux(Confirmed) HTN Resolved (hypertension)(Confi rmed) Plantar Active fasciitis(Confirmed) 1 1left foot Allergies, Adverse Reactions, Alerts Substance Reaction Severity Status NKDA NKDA Active Medications Colace 50 mg oral capsule 50 mg=1 cap, PO, BID, PRN Constipation, # 60 cap, 0 Refill(s) Start Date: 08/22/16 Status: Ordered morphine Sulfate 4 mg, 1 mL, Route: IVP, Drug form: SOLN, ONCE, Dosing Weight 84.091, kg, Priorit y: STAT, Start date: 08/22/16 18:58:00 AUDIOMETRIC TECHNICIAN, Stop date: 08/22/16 18:58:00 AUDIOMETRIC TECHNICIAN Notes: (Same as:MORPhine Sulfate) Start Date: 08/22/16 Stop Date: 08/22/16 Status: Completed NexIUM 20 mg oral delayed release capsule 20 mg=1 cap, PO, Daily, # 30 cap, 1 Refill(s) Start Date: 08/22/16 Status: Ordered NS (Bolus) IV 1,000 mL, 1,000 ml/hr, Infuse Over: 1 hr, Route: IV, 1,000, Drug form: INJ, ONCE , Priority: STAT, Dosing Weight 84.091 kg, Start date: 08/22/16 18:58:00 AUDIOMETRIC TECHNICIAN, Du ration: 1 doses or times, Stop date: 08/22/16 18:58:00 AUDIOMETRIC TECHNICIAN Start Date: 08/22/16 Stop Date: 08/22/16 Status: Completed Zofran 4 mg, 2 mL, Route: IVP, Drug form: INJ, ONCE, Dosing Weight 84.091, kg, Priority : STAT, Start date: 08/22/16 18:58:00 AUDIOMETRIC TECHNICIAN, Stop date: 08/22/16 18:58:00 AUDIOMETRIC TECHNICIAN Notes: (Same as: Zofran) MEDICATION WASTE Product Size: 4 mgProduct Was tamy: ___ mg Start Date: 08/22/16 Stop Date: 08/22/16 Status: Completed Results ELECTROLYTES Most recent to 1 oldest [Reference Range]: Sodium Lvl [135-145 140 mEq/L mEq/L] (08/22/16 7:01 PM) Potassium Lvl 3.8 mEq/L [3.5-5.1 mEq/L] (08/22/16 7:01 PM) Chloride Lvl [95-109 103 mEq/L mEq/L] (08/22/16 7:01 PM) CO2 [24-32 mEq/L] 27 mEq/L (08/22/16 7:01 PM) AGAP [10.0-20.0 13.8 mEq/L mEq/L] (08/22/16 7:01 PM) CHEM PANEL Most recent to 1 oldest [Reference Range]: Creatinine Lvl 0.77 mg/dL [0.50-1.40 mg/dL] (08/22/16 7:01 PM) eGFR 84 mL/min/1.73m2 1 *NA* (08/22/16 7:01 PM) BUN [7-22 mg/dL] 21 mg/dL (08/22/16 7:01 PM) B/C Ratio [6-25] 27 *HI* (08/22/16 7:01 PM) Glucose Lvl [70-99 139 mg/dL mg/dL] *HI* (08/22/16 7:01 PM) Total Protein 8.6 g/dL [6.4-8.4 g/dL] *HI* (08/22/16 7:01 PM) Albumin Lvl [3.5-5.0 4.1 g/dL g/dL] (08/22/16 7:01 PM) Globulin [2.7-4.2 4.5 g/dL g/dL] *HI* (08/22/16 7:01 PM) A/G Ratio [0.7-1.6] 0.9 (08/22/16 7:01 PM) Calcium Lvl 9.1 mg/dL [8.5-10.5 mg/dL] (08/22/16 7:01 PM) ALT [0-65 unit/L] 34 unit/L (08/22/16 7:01 PM) AST [0-37 unit/L] 20 unit/L (08/22/16 7:01 PM) Alk Phos [39-136 113 unit/L unit/L] (08/22/16 7:01 PM) Bili Total [0.2-1.3 0.3 mg/dL mg/dL] (08/22/16 7:01 PM) Lipase Lvl [73-393 76 unit/L unit/L] (08/22/16 7:01 PM) 1Result Comment: The eGFR is calculated using [...] tiplied by the estimated BMI. CARDIAC ENZYMES Most recent to 1 oldest [Reference Range]: Troponin-I <0.02 ng/mL [0.00-0.40 ng/mL] (08/22/16 7:01 PM) URINE AND STOOL Most recent to 1 oldest [Reference Range]: UA Turbidity [Clear] Slight *ABN* (08/22/16 7:33 PM) UA Color Ltyellow *NA* (08/22/16 7:33 PM) UA pH [5.0-8.0] 6.0 (08/22/16 7:33 PM) UA Spec Grav 1.017 [<=1.030] (08/22/16 7:33 PM) UA Glucose [Negative Negative mg/dL mg/dL] *NA* (08/22/16 7:33 PM) UA Blood [Negative] Negative (08/22/16 7:33 PM) UA Ketones [Negative Negative mg/dL mg/dL] *NA* (08/22/16 7:33 PM) UA Protein [Negative 100 mg/dL mg/dL] *ABN* (08/22/16 7:33 PM) UA Urobilinogen <=1.0 mg/dL [0.1-1.0 mg/dL] *NA* (08/22/16 7:33 PM) UA Bili [Negative] Negative *NA* (08/22/16 7:33 PM) UA Leuk Est Negative [Negative] (08/22/16 7:33 PM) UA Nitrite Negative [Negative] (08/22/16 7:33 PM) UA WBC [0-5 /HPF] <1 /HPF (08/22/16 7:33 PM) UA Bacteria [None Occasional /HPF Seen /HPF] *NA* (08/22/16 7:33 PM) UA Sq Epi [Few /LPF] Many /LPF *ABN* (08/22/16 7:33 PM) UA Mucus [None Seen Few /LPF /LPF] *NA* (08/22/16 7:33 PM) HEMATOLOGY Most recent to 1 oldest [Reference Range]: WBC [3.7-10.4 K/CMM] 11.9 K/CMM *HI* (08/22/16 7:01 PM) RBC [4.20-5.40 4.48 M/CMM M/CMM] (08/22/16 7:01 PM) Hgb [12.0-16.0 g/dL] 14.2 g/dL (08/22/16 7:01 PM) Hct [36.0-48.0 %] 42.3 % (08/22/16 7:01 PM) MCV [80.0-98.0 fL] 94.4 fL (08/22/16 7:01 PM) MCH [27.0-31.0 pg] 31.7 pg *HI* (08/22/16 7:01 PM) MCHC [32.0-36.0 33.6 g/dL g/dL] (08/22/16 7:01 PM) RDW [11.5-14.5 %] 14.1 % (08/22/16 7:01 PM) Platelet [133-450 274 K/CMM K/CMM] (08/22/16 7:01 PM) MPV [7.4-10.4 fL] 8.5 fL (08/22/16 7:01 PM) Segs [45.0-75.0 %] 68.0 % (08/22/16 7:01 PM) Bands [0.0-11.0 %] 0.0 % (08/22/16 7:01 PM) Lymphocytes 26.0 % [20.0-40.0 %] (08/22/16 7:01 PM) Atypical Lymphs 0.0 % [<=0.0 %] (08/22/16 7:01 PM) Monocytes [2.0-12.0 3.0 % %] (08/22/16 7:01 PM) Basophils [0.0-1.0 1.0 % %] (08/22/16 7:01 PM) Metamyelocytes 2.0 % [0.0-1.0 %] *HI* (08/22/16 7:01 PM) Segs-Bands # 8.1 K/CMM [1.5-8.1 K/CMM] (08/22/16 7:01 PM) Lymphocytes # 3.1 K/CMM [1.0-5.5 K/CMM] (08/22/16 7:01 PM) Monocytes # [0.0-0.8 0.4 K/CMM K/CMM] (08/22/16 7:01 PM) Basophils # [0.0-0.2 0.1 K/CMM K/CMM] (08/22/16 7:01 PM) RBC Morph Normal (08/22/16 7:01 PM) Plt Morph Normal (08/22/16 7:01 PM) Immunizations No data available for this section Procedures Procedure Date Related Diagnosis Body Site Arthroscopic knee operation Operation Social History Social History Type Response Smoking Status Never smoker; Exposure to Tobacco Smoke None; Cigarette Smoking Last 365 Days No; Reg Smoking Cessation Counseling No Assessment and Plan No data available for this section
--- OUTSIDE RECORDS SUMMARY | 2019-03-06 09:53 | XMS REPORT | CCD ---
Author Author Auto Generated Organization [facility] Address Unknown Phone Unavailable Care Team Providers Care Pastry Artist Name Role Phone Lowell Plunkett CP Unavailable Allergies, Adverse Reactions, Alerts Substance Reaction Status NKDA NKDA Active Medications Medication Instructions Start Date End Date Status [place] 5/325 oral 1 tab, PO, Q6H, PRN, 16 tab, for 09/08/2012 Ordered tablet pain, Substitution Allowed, Maintenance, TAB naproxen 375 mg oral 375 mg, 1 tab, PO, BID, 8 tab, 09/08/2012 09/12/2012 Ordered enteric coated Substitution Allowed, ECTAB tablet acetaminophen-hydroc 1 tab, Route: PO, Dosing Weight 09/08/2012 09/08/2012 Completed odone 325 mg-5 mg 89.091, kg, ONCE, STAT, Start date: oral tablet 09/08/12 19:24:00, Stop date: 09/08/12 19:24:00 Vital Signs Most recent to oldest [Reference Range]: 1 Height 157.48 cm (09/08/2012 17:52:00) Weight 89.091 kg (09/08/2012 17:52:00)
[2019-03-06] MEDS ORDERED: SODIUM CHLORIDE 0.9% 1000ML 1,000 ML IV STA (10:02)
[2019-03-06] MEDS ORDERED: ONDANSETRON HCL INJ 2MG/ML 2ML 2 MG/ML VIAL IV ONE (10:02)
[2019-03-06] MEDS ORDERED: MECLIZINE HCL 12.5 MG TAB PO ONE (10:15)
[2019-03-06 10:43] LABS: BASOPHILS % 0.6 % (0.0-1.0); EOSINOPHILS # (AUTO) 0.1 (0.0-0.4); EOSINOPHILS % 2.1 % (0.0-6.0); HEMOGLOBIN 12.8 g/dL (12.0-16.0); LYMPHOCYTES % 42.6 % (18.0-39.1); MEAN CORPUSCULAR HEMOGLOBIN 33.4 pg (28-32); MEAN CORPUSCULAR HGB CONC 34.6 g/dL (31-35); MEAN CORPUSCULAR VOLUME 96.6 fL (81-99); MONOCYTES # (AUTO) 0.4 (0.2-0.8); MONOCYTES % 8.9 % (4.4-11.3); NEUTROPHILS # (AUTO) 2.2 (2.1-6.9); NEUTROPHILS % 45.6 % (38.7-80.0); PLATELET COUNT 249 x10e3/uL (140-360); RED BLOOD COUNT 3.83 x10e6/uL (3.6-5.1); RED CELL DISTRIBUTION WIDTH 13.1 % (11.7-14.4)
[2019-03-06 10:48] LABS: INR 0.94; PROTHROMBIN TIME 13.1 seconds (11.9-14.5)
[2019-03-06 10:49] LABS: PARTIAL THROMBOPLASTIN TIME 27.5 seconds (23.8-35.5)
[2019-03-06 10:56] LABS: ALANINE AMINOTRANSFERASE 9 IU/L (0-55); ALBUMIN/GLOBULIN RATIO 1.2 (0.8-2.0); ALKALINE PHOSPHATASE 92 IU/L (40-150); ANION GAP 11.4 mmol/L (8-16); BLOOD UREA NITROGEN 12 mg/dL (7-26); BUN/CREATININE RATIO 15 (6-25); CALCIUM 9.9 mg/dL (8.4-10.2); CARBON DIOXIDE 29 mmol/L (22-29); CHLORIDE 105 mmol/L (98-107); CREATINE KINASE 39 IU/L (29-168); CREATININE, SERUM 0.81 mg/dL (0.57-1.11); EST GLOMERULAR FILTRATION RATE > 60 ML/MIN (60-); GLUCOSE 92 mg/dL (74-118); POTASSIUM 4.4 mmol/L (3.5-5.1); SODIUM 141 mmol/L (136-145)
[2019-03-06 10:56] LABS: BILIRUBIN,URINE NEGATIVE (NEGATIVE); CLARITY,URINE CLEAR (CLEAR); COLOR,URINE YELLOW (YELLOW); KETONES,URINE NEGATIVE (NEGATIVE); LEUKOCYTE ESTERASE ,URINE TRACE (NEGATIVE); NITRITE,URINE NEGATIVE (NEGATIVE); PROTEIN,URINE DIPSTICK NEGATIVE (NEGATIVE); URINE UROBILINOGEN 0.2 mg/dL (0.2 - 1)
[2019-03-06 11:01] LABS: EPITHELIAL CELLS,URINE FEW /LPF; MUCUS,URINE FEW (RARE); RBC,URINE 0-5 /HPF (0-5); WBC,URINE (MAN) 0-5 /HPF (0-5)
[2019-03-06] MEDS ORDERED: CALCIUM CARBON500 MG PO (11:13)
[2019-03-06] MEDS ORDERED: OMEPRAZOLE40 MG PO (11:15)
[2019-03-06] MEDS ORDERED: GINKGO BILOBA40 M1 PO (11:15)
[2019-03-06] MEDS ORDERED: BIOTIN5 MG PO (11:15)
[2019-03-06] MEDS ORDERED: MULTI-VITAMIN1 EACH PO (11:16)
[2019-03-06] MEDS ORDERED: ACETAMINOPHEN 325 MG TAB PO PRN (12:30)
[2019-03-06] MEDS ORDERED: SODIUM CHLORIDE FLUSH 10 ML SYR INJ PRN (12:30)
[2019-03-06] MEDS ORDERED: ZOLPIDEM TARTRATE 5 MG TAB PO PRN (12:30)
[2019-03-06] MEDS ORDERED: DIPHENHYDRAMINE HCL INJ 50 MG/ML VIAL IV PRN (12:30)
--- NOTE | 2019-03-06 12:50 | Diagnostic Imaging Report ---
EXAMINATION: CHEST SINGLE (PORTABLE) INDICATION: Dizziness, headache. COMPARISON: Chest radiograph 08/27/2007. FINDINGS: TUBES and LINES: None. LUNGS: Lungs are well inflated. There is no evidence of pneumonia or pulmonary edema. PLEURA: No pleural effusion or pneumothorax. HEART AND MEDIASTINUM: The cardiomediastinal silhouette is unremarkable. BONES AND SOFT TISSUES: No acute osseous abnormality. UPPER ABDOMEN: No free air under the diaphragm. IMPRESSION: No acute radiographic abnormality. Signed by: Dr. Cody Sotomayor MD on 03/06/2019 11:23 AM
--- NOTE | 2019-03-06 12:50 | Diagnostic Imaging Report ---
CT BRAIN WO HISTORY: Dizziness, headache COMPARISON: None. TECHNIQUE: Noncontrast axial scans were obtained from skull base to the vertex. Coronal and sagittal reconstructions obtained from the axial data. One or more of the following dose reduction techniques were used: Automated exposure control, adjustment of the mA and/or kV according to patient size, and/or utilization of iterative reconstruction technique. DISCUSSION: Scalp/Skull: Unremarkable. Brain sulci: Appropriate for patient's age. Ventricles: Normal in size and configuration. No hydrocephalus. Extra-axial spaces: No masses or fluid collections. Parenchyma: Mild periventricular white matter hypodensities are likely chronic microvascular ischemic changes. Otherwise, no mass, hemorrhage, or large vascular territory acute infarct. Dural sinuses: No abnormal densities. Sellar/Suprasellar region: Intact. Skull base: Intact. Incidental findings: None. IMPRESSION: 1. No acute intracranial abnormalities. 2. Mild supratentorial chronic microvascular ischemic change. Signed by: Dr. Jamal Richey M.D. on 03/06/2019 11:14 AM
--- OUTSIDE RECORDS SUMMARY | 2019-03-06 12:56 | XMS REPORT | Continuity of Care Document ---
Author Author [employer] Address Unknown Phone Unavailable Care Team Providers Care Washing Machine Loader Name Role Phone Cryptopay Information Cap That Unavailable Unavailable Problems Problem Status Onset Date Classification Date Reported Comments Source CHEST PAINS/ SOB Active 01/15/2018 [facility] ACUTE CHEST PAIN Active 01/15/2018 [facility] Discharge Diagnosis: Constipation 08/22/2016 08/25/2016 [facility] Discharge Diagnosis: Epigastric pain 08/22/2016 08/25/2016 [facility] ABD PAIN Active 08/22/2016 [facility] 726.73 Active 10/22/2012 [facility] UNK Active 10/22/2012 [facility] FALL, KNEE INJURY Active 09/08/2012 [facility] Acid reflux Active Problem 11/05/2012 [facility] Plantar fasciitis1 Active Problem 11/05/2012 1left foot [facility] Acid reflux Active Problem 01/18/2018 [facility] HTN (Confirmed) Resolved Problem 01/18/2018 [facility] Plantar fasciitis1 Active Problem 01/18/2018 left foot [facility] Medications Medication Details Route Status Patient Instructions Ordering Provider Order Date Source lisinopril 20 mg oral tablet 20 mg=1 tab, PO, Daily, 0 Refill(s) Active 01/15/2018 [facility] Acetaminophen 325 MG / Hydrocodone Bitartrate 10 MG Oral Tablet [Pep 10/325] 1 tab, Route: PO, Drug Form: TAB, Dosing Weight 86.364, kg, ONCE, STAT, Start date: 01/15/18 6:20:00 CDT, Stop date: 01/15/18 6:20:00 CDT Inactive 01/15/2018 [facility] Aspirin 324 mg, Route: PO, ONCE, Dosing Weight 86.364, kg, Priority: STAT, Start date: 01/15/18 5:58:00 CDT, Stop date: 01/15/18 5:58:00 CDT Inactive 01/15/2018 [facility] Saline Flush 0.9% 10 mL, Route: IVP, Drug Form: INJ, Dosing Weight 86.364, kg, PRN, PRN Line Flush, Start date: 01/15/18 5:58:00 CDT, Duration: 30 day, Stop date: 02/14/18 5:57:00 CDTNotes: (Same as: BD Posiflush) Inactive 01/15/2018 [facility] Docusate Sodium 50 MG Oral Capsule [Colace] 50 mg=1 cap, PO, BID, PRN Constipation, # 60 cap, 0 Refill(s) Active 08/23/2016 [facility] Esomeprazole 20 MG Enteric Coated Capsule [Nexium] 20 mg=1 cap, PO, Daily, # 30 cap, 1 Refill(s) Active 08/23/2016 [facility] Sodium Chloride 0.154 MEQ/ML Injectable Solution 1,000 mL, 1,000 ml/hr, Infuse Over: 1 hr, Route: IV, 1,000, Drug form: INJ, ONCE, Priority: STAT, Dosing Weight 84.091 kg, Start date: 08/22/16 18:58:00 CHIEF DRAFTER, Duration: 1 doses or times, Stop date: 08/22/16 18:58:00 CHIEF DRAFTER Inactive 08/23/2016 [facility] Zofran 4 mg, 2 mL, Route: IVP, Drug form: INJ, ONCE, Dosing Weight 84.091, kg, Priority: STAT, Start date: 08/22/16 18:58:00 CHIEF DRAFTER, Stop date: 08/22/16 18:58:00 CSTNotes: (Same as: Zofran) MEDICATION WASTE Product Size: 4 mg Product Wasted: ___ mg Inactive 08/23/2016 [facility] Morphine 4 mg, 1 mL, Route: IVP, Drug form: SOLN, ONCE, Dosing Weight 84.091, kg, Priority: STAT, Start date: 08/22/16 18:58:00 CHIEF DRAFTER, Stop date: 08/22/16 18:58:00 CSTNotes: (Same as:MORPhine Sulfate) Inactive 08/23/2016 [facility] ondansetron 4 mg, Route: IVP, ONCE, Dosing Weight 88.636, kg, PRN Nausea & Vomiting, Start date: 11/03/12 11:03:00 IVP No Longer Active [facility] 11/03/2012 [facility] acetaminophen-hydrocodone 325 mg-5 mg oral tablet 2 tab, Route: PO, Dosing Weight 88.636, kg, Q4H, PRN Pain Score 4-6, Start date: 11/03/12 11:03:00, Duration: 30 day, Stop date: 12/03/12 11:02:00 PO No Longer Active [facility] 11/03/2012 [facility] fentanyl 25 microgram, Route: IVP, Q5Min, Dosing Weight 88.636, kg, PRN Pain Score 4-6, Start date: 11/03/12 11:03:00, Duration: 4 doses or times, Stop date: Limited # of times IVP No Longer Active [facility] 11/03/2012 [facility] hydromorphone 0.5 mg, Route: IVP, Q5Min, Dosing Weight 88.636, kg, PRN Pain Score 4-6, Start date: 11/03/12 11:03:00, Duration: 5 doses or times, Stop date: Limited # of times IVP No Longer Active [facility] 11/03/2012 [facility] naloxone 0.04 mg, Route: IVP, Q2MIN, Dosing Weight 88.636, kg, PRN Narcotic Reversal, Start date: 11/03/12 11:03:00, Duration: 8 doses or times, Stop date: Limited # of times IVP No Longer Active [facility] 11/03/2012 [facility] ketorolac 30 mg, Route: IVP, ONCE, Dosing Weight 88.636, kg, PRN Breakthrough Pain, Start date: 11/03/12 11:03:00, Duration: 1 doses or times, Stop date: Limited # of times IVP No Longer Active [facility] 11/03/2012 [facility] meperidine 12.5 mg, Route: IVP, Q30Min, Dosing Weight 88.636, kg, PRN Other -See Comment, For shivering, Start date: 11/03/12 11:03:00, Duration: 2 doses or times, Stop date: Limited # of times IVP No Longer Active [facility] 11/03/2012 [facility] flumazenil 0.2 mg, Route: IVP, PRN, Dosing Weight 88.636, kg, PRN Benzodiazepine Reversal, Initial dose, Start date: 11/03/12 11:03:00, Duration: 30 day, Stop date: 12/03/12 11:02:00 IVP No Longer [facility] Lactated Ringers Injection IV 1000 mL 1,000 mL, Rate: 25 ml/hr, Infuse over: 40 hr, Route: IV, Dosing Weight 88.636 kg, Total Volume: 1,000, Start date: 11/03/12 7:36:00, Duration: 30 day, Stop date: 12/03/12 7:35:00 IV No Longer Active [facility] 11/03/2012 [facility] cefazolin 2 gm, 100 mL, Route: IVPB, Drug form: INJ, ONCALL, Dosing Weight 89.091, kg, Start date: 10/28/12 17:00:00, Duration: 1 doses or times IVPB No Longer Active [facility] 10/28/2012 [facility] pantoprazole 20 mg oral enteric coated tablet 40 mg, 2 tab, PO, Daily, 60 tab, Substitution Allowed, ECTAB PO Active 10/28/2012 [facility] Pep 5/325 oral tablet 1 tab, PO, Q6H, PRN, 16 tab, for pain, Substitution Allowed, Maintenance, TAB PO Active [facility] 09/09/2012 [facility] naproxen 375 mg oral enteric coated tablet 375 mg, 1 tab, PO, BID, 8 tab, Substitution Allowed, ECTAB PO Active [facility] 09/09/2012 [facility] acetaminophen-hydrocodone 325 mg-5 mg oral tablet 1 tab, Route: PO, Dosing Weight 89.091, kg, ONCE, STAT, Start date: 09/08/12 19:24:00, Stop date: 09/08/12 19:24:00 PO No Longer Active [facility] 09/09/2012 [facility] Allergies, Adverse Reactions, Alerts No Known Medication Allergies Immunizations No Data Provided for This Section Results Order Name Results Value Reference Range Date Interpretation Comments Source CARDIAC ENZYMES CK MB Index <1.6 0.0 - 2.5 01/15/2018 [facility] CARDIAC ENZYMES Total CK 62 12 - 191 01/15/2018 [facility] CARDIAC ENZYMES Troponin-I <0.02 0.00 - 0.40 01/15/2018 [facility] CARDIAC ENZYMES CK MB <1.0 0.5 - 3.6 01/15/2018 [facility] CARDIAC ENZYMES CK MB Index <1.4 0.0 - 2.5 01/15/2018 [facility] CARDIAC ENZYMES Troponin-I <0.02 0.00 - 0.40 01/15/2018 [facility] CARDIAC ENZYMES Total CK 71 12 - 191 01/15/2018 [facility] CARDIAC ENZYMES CK MB <1.0 0.5 - 3.6 01/15/2018 [facility] URINE AND STOOL UA Leuk Est Negative (01/15/18 6:33 AM) Negative 01/15/2018 [facility] URINE AND STOOL UA Sq Epi Occasional /LPF Few /LPF 01/15/2018 [facility] URINE AND STOOL UA Urobilinogen 0.2 0.1 - 1.0 01/15/2018 [facility] URINE AND STOOL UA Bili Negative *NA* (01/15/18 6:33 AM) Negative 01/15/2018 [facility] URINE AND STOOL UA Nitrite Negative (01/15/18 6:33 AM) Negative 01/15/2018 [facility] URINE AND STOOL UA Blood Negative (01/15/18 6:33 AM) Negative 01/15/2018 [facility] URINE AND STOOL UA WBC 0-2 /HPF 0 - 5 01/15/2018 [facility] URINE AND STOOL UA Mucus None Seen (01/15/18 6:33 AM) None Seen 01/15/2018 [facility] URINE AND STOOL UA Bacteria Occasional /HPF None Seen /HPF 01/15/2018 [facility] URINE AND STOOL UA RBC None Seen (01/15/18 6:33 AM) 0 - 2 01/15/2018 [facility] URINE AND STOOL UA Color Other *ABN* (01/15/18 6:33 AM) Yellow 01/15/2018 [facility] URINE AND STOOL UA Spec Grav <=1.005 *NA* (01/15/18 6:33 AM) <=1.030 01/15/2018 [facility] URINE AND STOOL UA Turbidity Slight Cloudy (01/15/18 6:33 AM) Clear 01/15/2018 [facility] URINE AND STOOL UA Glucose Negative (01/15/18 6:33 AM) Negative 01/15/2018 [facility] URINE AND STOOL UA pH 6.5 5.0 - 8.0 01/15/2018 [facility] URINE AND STOOL UA Ketones Negative *NA* (01/15/18 6:33 AM) Negative 01/15/2018 [facility] URINE AND STOOL UA Protein Negative (01/15/18 6:33 AM) Negative 01/15/2018 [facility] CARDIAC ENZYMES CK MB Index <1.4 0.0 - 2.5 01/15/2018 [facility] CARDIAC ENZYMES Total CK 74 12 - 191 01/15/2018 [facility] CARDIAC ENZYMES Troponin-I <0.02 0.00 - 0.40 01/15/2018 [facility] CARDIAC ENZYMES CK MB <1.0 0.5 - 3.6 01/15/2018 [facility] CARDIAC ENZYMES BNP 22 <=100 pg/mL 01/15/2018 [facility] CHEM PANEL Lipase Lvl 96 73 - 393 01/15/2018 [facility] CHEM PANEL eGFR 93 01/15/2018 Result Comment: [...] should be multiplied by the estimated BMI. [facility] CHEM PANEL A/G Ratio 1.0 0.7 - 1.6 01/15/2018 [facility] CHEM PANEL AGAP 11.5 10.0 - 20.0 01/15/2018 [facility] CHEM PANEL Alk Phos 98 39 - 136 01/15/2018 [facility] CHEM PANEL B/C Ratio 24 6 - 25 01/15/2018 [facility] CHEM PANEL Globulin 3.5 2.7 - 4.2 01/15/2018 [facility] CHEM PANEL Bili Total 0.4 0.2 - 1.3 01/15/2018 [facility] CHEM PANEL Albumin Lvl 3.6 3.5 - 5.0 01/15/2018 [facility] CHEM PANEL Calcium Lvl 9.1 8.5 - 10.5 01/15/2018 [facility] CHEM PANEL Total Protein 7.1 6.4 - 8.4 01/15/2018 [facility] CHEM PANEL ALT 23 0 - 65 01/15/2018 [facility] CHEM PANEL AST 14 0 - 37 01/15/2018 [facility] CHEM PANEL CO2 30 24 - 32 01/15/2018 [facility] CHEM PANEL Potassium Lvl 4.5 3.5 - 5.1 01/15/2018 [facility] CHEM PANEL Creatinine Lvl 0.68 0.50 - 1.40 01/15/2018 [facility] CHEM PANEL Sodium Lvl 144 135 - 145 01/15/2018 [facility] CHEM PANEL Chloride Lvl 107 95 - 109 01/15/2018 [facility] CHEM PANEL BUN 16 7 - 22 01/15/2018 [facility] CHEM PANEL Glucose Lvl 103 70 - 99 01/15/2018 [facility] HEMATOLOGY Monocytes 7.4 2.0 - 12.0 01/15/2018 [facility] HEMATOLOGY Lymphocytes 29.1 20.0 - 40.0 01/15/2018 [facility] HEMATOLOGY Basophils 0.6 0.0 - 1.0 01/15/2018 [facility] HEMATOLOGY Segs-Bands # 4.5 1.5 - 8.1 01/15/2018 [facility] HEMATOLOGY Eosinophils # 0.2 0.0 - 0.5 01/15/2018 [facility] HEMATOLOGY Lymphocytes # 2.1 1.0 - 5.5 01/15/2018 [facility] HEMATOLOGY Monocytes # 0.5 0.0 - 0.8 01/15/2018 [facility] HEMATOLOGY Eosinophils 2.4 0.0 - 4.0 01/15/2018 [facility] HEMATOLOGY Segs 60.5 45.0 - 75.0 01/15/2018 [facility] HEMATOLOGY RDW 13.9 11.5 - 14.5 01/15/2018 [facility] HEMATOLOGY Platelet 245 133 - 450 01/15/2018 [facility] HEMATOLOGY MCV 96.3 80.0 - 98.0 01/15/2018 [facility] HEMATOLOGY MPV 8.1 7.4 - 10.4 01/15/2018 [facility] HEMATOLOGY MCHC 34.3 32.0 - 36.0 01/15/2018 [facility] HEMATOLOGY MCH 33.0 27.0 - 31.0 01/15/2018 [facility] HEMATOLOGY WBC 7.4 3.7 - 10.4 01/15/2018 [facility] HEMATOLOGY Hgb 13.2 12.0 - 16.0 01/15/2018 [facility] HEMATOLOGY RBC 4.00 4.20 - 5.40 01/15/2018 [facility] HEMATOLOGY Hct 38.5 36.0 - 48.0 01/15/2018 [facility] HEMATOLOGY PT 13.6 12.0 - 14.7 01/15/2018 [facility] HEMATOLOGY INR 1.04 0.85 - 1.17 01/15/2018 [facility] HEMATOLOGY PTT 26.2 22.9 - 35.8 01/15/2018 [facility] URINE AND STOOL UA pH 6.0 5.0 - 8.0 08/23/2016 [facility] URINE AND STOOL UA Turbidity Slight *ABN* (08/22/16 7:33 PM) Clear 08/23/2016 [facility] URINE AND STOOL UA Spec Grav 1.017 <=1.030 08/23/2016 [facility] URINE AND STOOL UA Protein 100 mg/dL Negative mg/dL 08/23/2016 [facility] URINE AND STOOL UA Sq Epi Many /LPF Few /LPF 08/23/2016 [facility] URINE AND STOOL UA WBC <1 0 - 5 08/23/2016 [facility] URINE AND STOOL UA Bacteria Occasional /HPF None Seen /HPF 08/23/2016 [facility] URINE AND STOOL UA Mucus Few /LPF None Seen /LPF 08/23/2016 [facility] URINE AND STOOL UA Bili Negative *NA* (08/22/16 7:33 PM) Negative 08/23/2016 [facility] URINE AND STOOL UA Blood Negative (08/22/16 7:33 PM) Negative 08/23/2016 [facility] URINE AND STOOL UA Nitrite Negative (08/22/16 7:33 PM) Negative 08/23/2016 [facility] URINE AND STOOL UA Leuk Est Negative (08/22/16 7:33 PM) Negative 08/23/2016 [facility] URINE AND STOOL UA Glucose Negative mg/dL Negative mg/dL 08/23/2016 [facility] URINE AND STOOL UA Ketones Negative mg/dL Negative mg/dL 08/23/2016 [facility] URINE AND STOOL UA Color Ltyellow 08/23/2016 [facility] URINE AND STOOL UA Urobilinogen <=1.0 mg/dL 0.1 - 1.0 08/23/2016 [facility] CARDIAC ENZYMES Troponin-I <0.02 0.00 - 0.40 08/23/2016 [facility] CHEM PANEL Lipase Lvl 76 73 - 393 08/23/2016 [facility] CHEM PANEL Globulin 4.5 2.7 - 4.2 08/23/2016 [facility] CHEM PANEL A/G Ratio 0.9 0.7 - 1.6 08/23/2016 [facility] CHEM PANEL B/C Ratio 27 6 - 25 08/23/2016 [facility] CHEM PANEL AGAP 13.8 10.0 - 20.0 08/23/2016 [facility] CHEM PANEL eGFR 84 08/23/2016 Result Comment: [...] Glucose Lvl 139 70 - 99 08/23/2016 [facility] CHEM PANEL BUN 21 7 - 22 08/23/2016 [facility] CHEM PANEL Bili Total 0.3 0.2 - 1.3 08/23/2016 [facility] CHEM PANEL Alk Phos 113 39 - 136 08/23/2016 [facility] CHEM PANEL ALT 34 0 - 65 08/23/2016 [facility] CHEM PANEL AST 20 0 - 37 08/23/2016 [facility] CHEM PANEL Total Protein 8.6 6.4 - 8.4 08/23/2016 [facility] CHEM PANEL Albumin Lvl 4.1 3.5 - 5.0 08/23/2016 [facility] CHEM PANEL CO2 27 24 - 32 08/23/2016 [facility] CHEM PANEL Calcium Lvl 9.1 8.5 - 10.5 08/23/2016 [facility] CHEM PANEL Potassium Lvl 3.8 3.5 - 5.1 08/23/2016 [facility] CHEM PANEL Chloride Lvl 103 95 - 109 08/23/2016 [facility] CHEM PANEL Creatinine Lvl 0.77 0.50 - 1.40 08/23/2016 [facility] CHEM PANEL Sodium Lvl 140 135 - 145 08/23/2016 [facility] HEMATOLOGY Plt Morph Normal (08/22/16 7:01 PM) 08/23/2016 [facility] HEMATOLOGY Metamyelocytes 2.0 0.0 - 1.0 08/23/2016 [facility] HEMATOLOGY Atypical Lymphs 0.0 <=0.0 % 08/23/2016 [facility] HEMATOLOGY RBC Morph Normal (08/22/16 7:01 PM) 08/23/2016 [facility] HEMATOLOGY Segs-Bands # 8.1 1.5 - 8.1 08/23/2016 [facility] HEMATOLOGY Basophils # 0.1 0.0 - 0.2 08/23/2016 [facility] HEMATOLOGY Monocytes # 0.4 0.0 - 0.8 08/23/2016 [facility] HEMATOLOGY Segs 68.0 45.0 - 75.0 08/23/2016 [facility] HEMATOLOGY Lymphocytes # 3.1 1.0 - 5.5 08/23/2016 [facility] HEMATOLOGY Lymphocytes 26.0 20.0 - 40.0 08/23/2016 [facility] HEMATOLOGY Basophils 1.0 0.0 - 1.0 08/23/2016 [facility] HEMATOLOGY Bands 0.0 0.0 - 11.0 08/23/2016 [facility] HEMATOLOGY Monocytes 3.0 2.0 - 12.0 08/23/2016 [facility] HEMATOLOGY MCV 94.4 80.0 - 98.0 08/23/2016 [facility] HEMATOLOGY RDW 14.1 11.5 - 14.5 08/23/2016 [facility] HEMATOLOGY Hct 42.3 36.0 - 48.0 08/23/2016 [facility] HEMATOLOGY Hgb 14.2 12.0 - 16.0 08/23/2016 [facility] HEMATOLOGY Platelet 274 133 - 450 08/23/2016 [facility] HEMATOLOGY MCHC 33.6 32.0 - 36.0 08/23/2016 [facility] HEMATOLOGY MPV 8.5 7.4 - 10.4 08/23/2016 [facility] HEMATOLOGY MCH 31.7 27.0 - 31.0 08/23/2016 [facility] HEMATOLOGY RBC 4.48 4.20 - 5.40 08/23/2016 [facility] HEMATOLOGY WBC 11.9 3.7 - 10.4 08/23/2016 [facility] URINALYSIS UA Sq Epi Few /LPF *NA* (10/28/2012 16:31:00) Few 10/28/2012 NA [facility] URINALYSIS UA RBC 1 0 - 2 10/28/2012 Normal [facility] URINALYSIS UA Leuk Est Negative (10/28/2012 16:31:00) Negative 10/28/2012 Normal [facility] URINALYSIS UA Nitrite Negative (10/28/2012 16:31:00) Negative 10/28/2012 Normal [facility] URINALYSIS UA Ketones Negative mg/dL *NA* (10/28/2012 16:31:00) Negative 10/28/2012 [facility] URINALYSIS UA WBC 1 0 - 5 10/28/2012 Normal [facility] URINALYSIS UA Glucose Negative mg/dL *NA* (10/28/2012 16:31:00) Negative 10/28/2012 NA [facility] URINALYSIS UA Blood Negative (10/28/2012 16:31:00) Negative 10/28/2012 Normal [facility] URINALYSIS UA Bili Negative *NA* (10/28/2012 16:31:00) Negative 10/28/2012 [facility] URINALYSIS UA Protein Negative mg/dL (10/28/2012 16:31:00) Negative 10/28/2012 Normal [facility] URINALYSIS UA Urobilinogen 0.1 - 1.0 10/28/2012 NA [facility] URINALYSIS UA Mucus Few /LPF *NA* (10/28/2012 16:31:00) None Seen 10/28/2012 [facility] URINALYSIS UA Spec Grav 1.024 <=1.030 10/28/2012 Normal [facility] URINALYSIS UA Turbidity Clear (10/28/2012 16:31:00) Clear 10/28/2012 Normal [facility] URINALYSIS UA Color Yellow *NA* (10/28/2012 16:31:00) Yellow 10/28/2012 [facility] URINALYSIS UA pH 5.0 5.0 - 8.0 10/28/2012 Normal [facility] Pathology Reports No Data Provided for This [...] of acute cardiopulmonary disease. SL: 131 01/15/2018 [facility] Abdomen/Pelvis w IV contrast CT Patient Name: KRISTI NUNO : 1955; Age: 60 years Female MR: [id number] Study: Abdomen/Pelvis w IV contrast CT 08/22/2016 6:59 PM CHIEF DRAFTER Clinical Indication: Abdominal pain, acute, Stated difuse [...] hiatal hernia. 6. Lower lumbar spondylosis. SL: [id number] 08/22/2016 [facility] Abdomen RUQ US Patient Name: KRISTI NUNO : 1955; Age: 60 years Female MR: [id number] Study: Abdomen RUQ US 08/22/2016 6:57 PM CHIEF DRAFTER Clinical Indication: Abdominal pain, acute. epigastric pain [...] most likely due to fatty infiltration. SL: [id number] 08/22/2016 [facility] Chest 1view DX EXAM: XR CHEST 1 VIEW DATE: 08/22/2016 6:56 PM CHIEF DRAFTER INDICATION: Shortness of Breath. COMPARISON: None Available. TECHNIQUE: A single AP view of the chest was obtained. FINDINGS: No focal consolidation or pneumothorax is identified. The cardiomediastinal silhouette is within normal limits. The costophrenic recesses are sharp and without effusion. No acute osseous abnormality is identified. IMPRESSION: No acute cardiopulmonary abnormality. SL: [id number] 08/22/2016 [facility] Consultation Notes No Data Provided for This Section Discharge Summaries No Data Provided for This Section History and Physicals No Data Provided for This Section Vital Signs Vital Sign Value Date Comments Source Respitory Rate 17 01/15/2018 [facility] Heart Rate 63 01/15/2018 [facility] Systolic (mm Hg) 114 01/15/2018 [facility] Diastolic (mm Hg) 60 01/15/2018 [facility] Temperature Oral (F) 98.0 F 01/15/2018 [facility] BMI Calculated 35.37 01/15/2018 [facility] Height 157.48 cm 01/15/2018 [facility] Weight 87.727 01/15/2018 [facility] Systolic (mm Hg) 141 01/15/2018 [facility] Diastolic (mm Hg) 70 01/15/2018 [facility] Heart Rate 63 01/15/2018 [facility] Temperature Oral (F) 97.7 F 01/15/2018 [facility] Respitory Rate 18 01/15/2018 [facility] Systolic (mm Hg) 132 01/15/2018 [facility] Diastolic (mm Hg) 83 01/15/2018 [facility] Respitory Rate 14 01/15/2018 [facility] Heart Rate 66 01/15/2018 [facility] Weight 86.364 01/15/2018 [facility] BMI Calculated 34.82 01/15/2018 [facility] Temperature Oral (F) 98.4 F 01/15/2018 [facility] Height 157.48 cm 01/15/2018 [facility] Respitory Rate 20 08/23/2016 [facility] Systolic (mm Hg) 161 08/23/2016 [facility] Diastolic (mm Hg) 75 08/23/2016 [facility] Temperature Oral (F) 98.2 F 08/23/2016 [facility] Systolic (mm Hg) 180 08/23/2016 [facility] Diastolic (mm Hg) 83 08/23/2016 [facility] Respitory Rate 19 08/23/2016 [facility] Systolic (mm Hg) 201 08/23/2016 [facility] Diastolic (mm Hg) 97 08/23/2016 [facility] Respitory Rate 17 08/23/2016 [facility] Heart Rate 93 08/23/2016 [facility] Heart Rate 93 08/23/2016 [facility] Temperature Oral (F) 97.7 F 08/23/2016 [facility] Height 157.48 cm 08/23/2016 [facility] Weight 84.091 08/23/2016 [facility] BMI Calculated 33.91 08/23/2016 [facility] Diastolic (mm Hg) 71 11/03/2012 [facility] Systolic (mm Hg) 132 11/03/2012 [facility] Diastolic (mm Hg) 64 11/03/2012 [facility] Systolic (mm Hg) 131 11/03/2012 [facility] Diastolic (mm Hg) 68 11/03/2012 [facility] Systolic (mm Hg) 132 11/03/2012 [facility] Respitory Rate 10 11/03/2012 [facility] Respitory Rate 12 11/03/2012 [facility] Respitory Rate 14 11/03/2012 [facility] Heart Rate 77 11/03/2012 [facility] Heart Rate 74 10/28/2012 [facility] Temperature Oral (F) 97.8 F 10/28/2012 [facility] Weight 88.636 10/28/2012 [facility] Height 157.48 cm 10/28/2012 [facility] Height 157.48 cm 09/08/2012 [facility] Weight 89.091 09/08/2012 [facility] Encounters Location Location Details Encounter Type Encounter Number Reason For Visit Attending Provider ADM Date DC Date Status Source [facility] Emergency [id number] AKILAH PATRICIO 09/08/2012 09/08/2012 Discharged [facility] DS [id number] NIRALI GORDON 11/03/2012 11/03/2012 Discharged [facility] Emergency [id number] Harleen Al 08/23/2016 08/23/2016 [facility] Observation [id number] Celso Mantilla 01/15/2018 01/15/2018 [facility] Procedures Procedure Code Date Perfomer Comments Source Arthroscopic knee operation [id number] [facility] Operation [id number] [facility] Arthroscopic knee operation [id number] [facility] Operation [id number] [facility] Assessment and Plan Assessment and Plan Date [...] as tolerated F/U in 1-2 weeks 01/15/2018 [facility] Plan of Care No Data Provided for This Section Social History Social History Date Source Social History TypeResponse Smoking Status Never smoker; Exposure to Tobacco Smoke None; Cigarette Smoking Last 365 Days No; Reg Smoking Cessation Counseling No entered on: 01/15/18 01/15/2018 [facility] Family History No Data Provided for This Section Advance Directives No Data Provided for This Section Functional Status No Data Provided for This Section
--- OUTSIDE RECORDS SUMMARY | 2019-03-06 12:57 | XMS REPORT ---
[facility] Address Unknown Phone Unavailable Care Team Providers Care Radar Operator Name Role Phone Leonid MORIN Unavailable Unavailable Problems This patient has no known problems. Allergies, Adverse Reactions, Alerts This patient has no known allergies or adverse reactions. Medications This patient has no known medications. Results Test Description Test Time Test Comments Text Results Atomic Results Result Comments CHEST SINGLE (PORTABLE) 2019-03-06 11:19:00 [place] [id number] Patient Name: KRISTI NUNO MR #: [id number] : 1955 Age/Sex: 63/F Req #: [id number] Adm Physician: Ordered by: COURTNEY YAÑEZ [employer]IONER Report #: [id number] Location: ER Room/Bed: Procedure: [id number] DX/CHEST SINGLE (PORTABLE) Exam Date: 03/06/19 Exam Time: 1050 REPORT STATUS: Signed EXAMINATION: CHEST SINGLE (PORTABLE) IN DICATION: Dizziness, headache. COMPARISON: Chest radiograph 08/27/2007. FINDINGS: TUBES and LINES: None. LUNGS: Lungs are well inflated. There is no evidence of pneumonia or pulmonary edema. PLEURA: No pleural effusion or pneumothorax. HEART AND MEDIASTINUM: The cardiomediastinal silhouette is unremarkable. BONES AND SOFT TISSUES: No acute osseous abnormality. UPPER ABDOMEN: No free air under the diaphragm. IMPRESSION: No acute radiographic abnormality. Signed by: Dr. Rolando Recio MD on 03/06/2019 11:23 AM Dictated By: ROLANDO RECIO MD [id number] Transcribed By: MIGEL on 03/06/191122 COPY TO: COURTNEY YAÑEZ [employer] COMMISSIONER CT BRAIN WO 2019-03-06 11:11:00 [place] [address] Patient Name: KRISTI NUNO MR #: [id number] : 1955 Age/Sex: 63/F Req #: [id number] Adm Physician: Ordered by: COURTNEY YAÑEZ [employer]ISSIONER Report #: [id number] Location: ER Room/Bed: Procedure: [id number] CT/CT BRAIN WO Exam Date: 03/06/19 Exam Time: 1055 REPORT STATUS: Signed CT BRAIN WO HISTORY: Dizziness, headache COMPARISON: None. TECHNIQUE: Noncontrast axial scans were obtained from skull base to the vertex. Coronal and sagittal reconstructions obtained from the axial data. One or more of the following dose reduction techniques were used: Automated exposure control, adjustment of the mA and/or kV according to patient size, and/or utilization of iterative reconstruction technique. DISCUSSION: Scalp/Skull: Unremarkable. Brain sulci: Appropriate for patient's age. Ventricles: Normal in size and configuration. No hydrocephalus. Extra-axial spaces: No masses or fluid collections. Parenchyma: Mild periventricular white matter hypodensities are likely chronic microvascular ischemic changes. Otherwise, no mass, hemorrhage, or large vascular territory acute infarct. Dural sinuses: No abnormal densities. Sellar/Suprasellar region: Intact. Skull base: Intact. Incidental findings: None. IMPRESSION: 1. No acute intracranial abnormalities. 2. Mild supratentorial chronic microvascular ischemic change. Signed by: Dr. Jamal Richey M.D. on 03/06/2019 11:14 AM Dictated By: JAMAL RICHEY MD [id number] Transcribed By: MIGEL on 03/06/191113 COPY TO: COURTNEY YAÑEZ NP
--- NOTE | 2019-03-06 13:37 | NUR ---
FINE PATCHER AT BEDSIDE
--- NOTE | 2019-03-06 13:39 | NUR ---
Dr Morales notified of consult.
--- NOTE | 2019-03-06 14:52 | NUR ---
patient arrived via stretcher. see admit assess. vitals stable.
[2019-03-06] MEDS: FAMOTIDINE 20 MG/2 ML VIAL IV SCH (16:43)
[2019-03-07 04:15] VITALS: BP 109/59
[2019-03-07 07:39] VITALS: BP 121/58
[2019-03-07] MEDS: FAMOTIDINE 20 MG/2 ML VIAL IV SCH ×2 (08:07→17:00)
[2019-03-07] MEDS: MULTIVITAMINS/MINERALS TAB PO SCH ×2 (08:07→17:00)
--- NOTE | 2019-03-07 08:08 | NUR ---
Patient up in bed eating breakfast, no c/o dizzy now, denies any pain or SOB, Call light in reach, at bed side
[2019-03-07 08:10] VITALS: BP 121/58
[2019-03-07] MEDS ORDERED: ASPIRIN 325 MG TAB EC PO SCH (09:00)
[2019-03-07 11:29] VITALS: BP 102/57
[2019-03-07 15:27] VITALS: BP 122/58
--- NOTE | 2019-03-07 15:56 | NUR ---
DOS: 03-06-19 at 6pm H&P cc: dizziness HPI: 63yoF, PCP , developed dizziness for 4 days. Pt went to PCP, given meclizine. Pt denies vertigo. Did have JANE. PMH: GERD PSHx: gastric sleeve 2018 Allergies; see emr Fh/Sh; ; no cigs/illicits/cigs meds; see MAR ROS: no f/c/s/N/V/D/vision changes/back pain/cp/skin rash. v/s revd PE tired appearing anicteric ns1s2 mod bs soft nt nd no e/t a&ox3; guallpa skin dry n. affect labs/meds see emr A/P: Dizziness Overweight BMI 28 GERD PLAN meclizine rehydrate home meds scd Eulalio Levy MD, PhD
[2019-03-07] MEDS ORDERED: ASPIR 8181 MG PO (16:18)
--- NOTE | 2019-03-07 18:14 | Diagnostic Imaging Report ---
History: Dizziness Comparison studies: Head CT on 03/06/2019 Technique: Sagittal T2; axial DWI, FLAIR, MPGR, T1, Coronal FLAIR. Intravenous contrast: None Findings: Scalp: Normal in signal . No masses . Bone marrow: Normal in signal intensity. Extra-axial: No masses or fluid collections. Brain sulci: Appropriate for age. Ventricles: Normal in size . No hydrocephalus . Parenchyma: Multiple, scattered T2 FLAIR hyperintense foci in the supratentorial white matter and in the reyes are nonspecific small vessel ischemic changes. No masses, hemorrhage, acute or chronic cortical ischemic insults. Suprasellar region: No abnormalities. Craniocervical junction: No abnormalities. Patent foramen magnum. No Chiari one malformation. Vessels: Normal flow-voids in the arteries and sinuses. IMPRESSION: 1. No acute abnormalities. 2. Mild supratentorial white matter small vessel ischemic changes. 3. No changes compared to the head CT on 03/06/2019. Signed by: Dr. Eduardo Chino M.D. on 03/07/2019 6:11 PM
--- NOTE | 2019-03-07 19:46 | Consultation ---
DATE OF CONSULTATION: 03/07/2019 Neurology Consult Note HISTORY OF PRESENT ILLNESS: Ms. Gamboa is a 63-year-old right-hand dominant woman with past medical history significant for gastroesophageal reflux disease, admitted to [facility] on March 06, 2019, with dizziness. Approximately four days prior to admission, the patient experienced the onset of dizziness, which is further described as lightheadedness. Ms. Gamboa reports the dizziness occurs intermittently, and is precipitated by changes in position (i.e. lying to sitting, sitting to standing). The patient does not report other neurological symptoms associated with the lightheadedness. Specifically, the patient does not report a visual field cut or other disturbance, dysarthria, aphasia, facial droop, hemiparesis, hemihypesthesia, poor balance, impairment of gait, vertigo, or confusion. The patient does not report a headache associated with her symptoms. Approximately one or two days after the symptoms began, Ms. Gamboa saw her primary care physician, who prescribed meclizine 25 mg by mouth 3 times daily as needed for dizziness. Ms. Gamboa took this medication for 1 to 2 days, but her symptoms did not improve. She presented to the emergency center at [facility] on March 06, 2019, for further evaluation of her symptoms. Upon arrival in the emergency center, the patient was afebrile with a blood pressure of 125/87 mmHg and a pulse of 64 beats per minute. The patient's neurological examination was significant for mild left-sided facial weakness, abnormality of finger-nose test, mild on the right and moderate on the left, left hemiparesis. A CT of the brain without contrast was performed while the patient was in the emergency center. This study did not reveal evidence of recent large territorial ischemia or hemorrhage. Ms. Gamboa was then admitted to [facility] under observation status for further evaluation and treatment of her symptoms. The patient reports experiencing similar symptoms one time previously. The symptoms lasted for approximately one day. Ms. Gamboa did not seek medical attention for her symptoms at that time. Ms. Gamboa reports a 1-day history of nausea. She endorses decreased oral intake of solids, but not liquids. The patient does not report fevers, chills, vomiting, diarrhea, or symptoms of urinary tract infection. REVIEW OF SYSTEMS: Nausea, dizziness which is further described as lightheadedness. PAST MEDICAL HISTORY: Gastroesophageal reflux disease, prior history of morbid obesity. PAST SURGICAL HISTORY: Gastric sleeve, steroid injections to the hip. PAST HOSPITALIZATIONS: Surgeries/procedures as listed, and an overnight emergency center stay for severe headache. FAMILY MEDICAL HISTORY: Hypertension, diabetes mellitus, and renal cell carcinoma in a brother. SOCIAL HISTORY: Ms. Gamboa is . She is not employed. The patient does not report current or prior tobacco, alcohol, or recreational drug use. HOME MEDICATIONS: Aspirin 81 mg by mouth daily, biotin 5 mg by mouth daily, calcium carbonate 500 mg one tablet by mouth twice daily, ginkgo biloba 40 mg by mouth daily, multivitamin one tablet by mouth twice daily, omeprazole 40 mg by mouth daily. HOSPITAL MEDICATIONS: Tylenol, aspirin, Benadryl, Pepcid, multivitamin, Ambien. ALLERGIES: NO KNOWN DRUG ALLERGIES. NO KNOWN FOOD ALLERGIES. NO KNOWN ALLERGIES TO LATEX. NO KNOWN ALLERGIES TO IODINE OR OTHER CONTRAST MATERIALS. PHYSICAL EXAMINATION: VITAL SIGNS: Height 62 inches, weight 153 pounds, BMI 28.0 kg/m2. Blood pressure 122/58 mmHg, pulse 58 beats per minute, respiratory rate 18 breaths per minute, and oxygen saturation 99% on room air. GENERAL: The patient is awake and alert, does not appear distressed. Overweight. HEENT: Normocephalic, atraumatic. Pupils equal, round, and reactive to light. Moist mucous membranes. NECK: Supple. No appreciable thyromegaly. No appreciable carotid bruits. CARDIOVASCULAR: S1, S2, regular rate and rhythm. No murmurs, rubs, or gallops. RESPIRATORY: Clear to auscultation bilaterally. No wheezes, rhonchi, or rales. EXTREMITIES: The skin is warm and dry. No clubbing, cyanosis, or edema. The posterior tibial and dorsalis pedis pulses are 2+ and symmetric. SKIN: No rashes or lesions. NEUROLOGIC: Memory/Attention: The patient is awake and alert, oriented to person, place, time, and situation. Cranial Nerves: Cranial nerve I - not tested. Cranial nerves II, III, IV, and - pupils are equal and round, react briskly to light (from 4 mm to 2 mm). Extraocular movements intact. No nystagmus. Cranial nerve V - sensation to light touch and pinprick is intact in the bilateral V1 through V3 distributions. Strength in the temporalis and masseter muscles are within normal limits. Cranial nerve VII - the face is symmetric as are all facial movements. Strength is within normal limits. Cranial nerve VIII - hearing is intact to finger rub bilaterally. Cranial nerve IX, X - the soft palate elevates equally and symmetrically. Cranial nerve XI - normal strength of the bilateral sternocleidomastoid and trapezius muscles. Cranial nerve XII - tongue protrudes midline and moves symmetrically from [id number]. Strength: Bulk is normal. Strength is 5/5 in the bilateral deltoids, biceps, triceps, wrist flexors and extensors, finger flexors and extensors, intrinsic hand muscles, hip flexors, knee flexors and extensors, ankle dorsiflexion and plantar flexion, and intrinsic foot muscles. Tone is normal. DTRs: Deep tendon reflexes are 1+ and symmetric at the triceps, biceps, brachioradialis, patellas, and Achilles. Plantar responses are flexor bilaterally. Sensation: Sensation is intact to light touch and pinprick in both arms and both legs. Cerebellar: [id number]-[id number] and heel-doshi movements are intact without dysmetria or other impairment. Gait: Deferred. Speech: Spontaneous speech is normal without appreciable dysarthria or aphasia. Repetition is intact. Involuntary movements: None. Pronator Drift: None. LABORATORY DATA: A comprehensive metabolic panel is unremarkable. Cardiac enzymes are negative x1. The CBC with differential and platelets reveals a white blood cell count of 4.72 with a right shift with 45.6% neutrophils, 42.6% lymphocytes, 8.9% monocytes, 2.1% eosinophils, and 0.6% basophils. The hemoglobin and hematocrit are 12.8 and 37.0, respectively. The platelet count is 249. The coagulation profile is within normal limits. A urinalysis is significant for trace leukocyte esterase and few urine mucus. A urine culture collected on March 06, 2019, reveals no growth at 18 to 24 hours. DIAGNOSTIC STUDIES: Electrocardiogram on 03/06/2019: Normal sinus rhythm at 60 beats per minute. Chest x-ray on 03/06/2019: No acute radiographic abnormality. CT of the brain without contrast on 03/06/2019: On my review, there is no evidence of recent or remote large territorial ischemia, hemorrhage, mass, or mass effect. Cerebral volumes are appropriate for age. There are findings suggestive of mild chronic small-vessel ischemic disease. Echocardiogram on 03/06/2019: Ejection fraction 60% to 65%. Left atrial enlargement. Mild mitral and tricuspid regurgitation. Bilateral carotid artery ultrasound with Doppler on 03/06/2019: There is no atherosclerosis in either carotid artery system. Flow is antegrade in the bilateral vertebral arteries. MRI of the brain without contrast on 03/07/2019: On my review, there is no evidence of recent or remote large territorial ischemia, hemorrhage, mass, or mass effect. Cerebral volumes are appropriate for age. There are scattered nonspecific T2/FLAIR hyperintense foci in the supratentorial white matter compatible with mild chronic small vessel ischemic disease. ASSESSMENT AND PLAN: Ms. Gamboa is a 63-year-old right-hand dominant woman with past medical history significant for gastroesophageal reflux disease, admitted to [facility] on March 06 with dizziness. The patient's neurological examination is nonfocal. Her laboratory data and other diagnostic studies have been reviewed and are documented above. The etiology of the patient's dizziness is undetermined. There does not appear to be a neurological cause for her dizziness. Ms. Gamboa reports her symptoms have significantly improved during her hospitalization. There are no other recommendations from the Neurology Service at this time. The patient may be discharged to home. Thank you for this consultation. Please call again with any questions or concerns. TIME SPENT: 50 minutes. Lori Morales MD CP/SHEA /[id number] VANESA
== END 2019-03-07 19:25 | disposition home or self-care (01) ==
LOC: ER 09:47 → ERHOLD 12:52 → IMCU 14:29
PROVIDERS: ADMIT Internal Medicine; ATTEND Internal Medicine
DX: R42 Dizziness and giddiness (principal); K21.9 Gastro-esophageal reflux disease without esophagitis; R51 Headache; Z98.84 Bariatric surgery status; E66.3 Overweight; Z68.28 Body mass index [BMI] 28.0-28.9, adult
CPT/HCPCS: 36415; 70450; 70551; 71045; 80053; 81001; 82550; 82553; 84484; 85025; 85610; 85730; 87086; 93005; 93306; 93880; 99284; G0378 ×2; J2405; J7030; J8597

== ENCOUNTER → 2020-02-14 | Outpatient (CLI) | payer MEDICARE, OTHER ==
[~2020-02-14] MED LIST: ASPIR 8181 MG PO; BIOTIN5 MG PO; CALCIUM CARBON500 MG PO; GINKGO BILOBA40 M1 PO; MULTI-VITAMIN1 EACH PO; OMEPRAZOLE40 MG PO
== END ==
LOC: MAMMO 14:29
PROVIDERS: ATTEND Family Medicine
DX: Z12.31 Encounter for screening mammogram for malignant neoplasm of breast (principal)
CPT/HCPCS: 77067

== ENCOUNTER → 2021-04-10 | Outpatient (CLI) | payer MEDICARE, OTHER | LOC: MAMMO 12:06 | PROVIDERS: ATTEND Family Medicine | DX: Z12.31 Encounter for screening mammogram for malignant neoplasm of breast (principal) | CPT/HCPCS: 77067 ==

== ENCOUNTER → 2022-04-02 | Outpatient (CLI) | payer MEDICARE | LOC: MAMMO 10:38 | PROVIDERS: ATTEND Family Medicine | DX: Z12.31 Encounter for screening mammogram for malignant neoplasm of breast (principal) | CPT/HCPCS: 77067 ==

== ENCOUNTER → 2024-04-08 | Outpatient (REF) | payer MEDICARE, OTHER | LOC: MAMMO 10:47 | PROVIDERS: ATTEND Obstetrics & Gynecology | DX: Z12.31 Encounter for screening mammogram for malignant neoplasm of breast (principal) | CPT/HCPCS: 77067 ==

== ENCOUNTER → 2025-04-12 | Outpatient (REF) | payer MEDICARE, OTHER | LOC: MAMMO 10:17 | PROVIDERS: ATTEND Student in an Organized Health Care Education/Training Program | DX: Z12.31 Encounter for screening mammogram for malignant neoplasm of breast (principal) | CPT/HCPCS: 77067 ==

== ENCOUNTER → 2025-05-17 | Outpatient (REF) | payer MEDICARE, OTHER | LOC: DX 10:40 | PROVIDERS: ATTEND Student in an Organized Health Care Education/Training Program | DX: M85.88 Other specified disorders of bone density and structure, other site (principal); Z78.0 Asymptomatic menopausal state | CPT/HCPCS: 77080 ==